=== PATIENT | female | born 1955 | race Caucasian/White ===

== ENCOUNTER 2019-07-15 22:07 | Observation (INO) | payer MEDICARE, BC, SELFPAY ==
[2019-07-15] VITALS (10 sets, daily range): BP systolic 99–101; BP diastolic 64–69; PULSE 69–82; RESP 17–29; TEMP 36.9; O2SAT 91–98
--- NOTE | ~2019-07-15 | CT_ITS ---
EXAMINATION: CT brain wo con INDICATION: Confusion and left facial droop COMPARISON: None TECHNIQUE: Standard unenhanced head CT. The dose-length product (DLP) was 605.33 mGy-cm. The mA was a djusted according to patient size. Iterative reconstruction technique was employed. FINDINGS: There is no intracranial hemorrhage, acute infarction, or abnormal mass lesion. The ventric les are normal. There is no abnormal mass effect or midline shift. The oleary-white matter differentiat ion is normal. The basal cisterns are patent. The orbits are normal. The paranasal sinuses, mastoids and calvarium are normal. IMPRESSION: 1. No acute intracranial abnormality. As per stroke protocol, I called these results to the Emergency Department, and discussed with Dr. Kayden Goins MD at 2229 hours on 07/15/2019. Reviewed, dictated and finalized at location A. IMPRESSION: 1. No acute intracranial abnormality. As per stroke protocol, I called these results to the Emergency Department, and discussed with Dr. Fransisca Goins MD at 2229 hours on 07/15/2019.
--- NOTE | ~2019-07-15 | XR_ITS ---
EXAMINATION: XR chest 1V portable INDICATION: Transient alteration of awareness TECHNIQUE: Portable AP chest at 2231 hours COMPARISON: 07/16/2012 FINDINGS: There are minimal airspace opacities of the left lung base. The lungs are otherwise free of acute opacities. There is no pleural effusion or pneumothorax. The cardiomediastinal silhouette is n ormal for technique. Cholecystectomy clips are present in the right upper quadrant. IMPRESSION: 1. Minimal airspace opacities of the left lung base, consistent with atelectasis versus pneumonia. Reviewed, dictated and finalized at location A. IMPRESSION: 1. Minimal airspace opacities of the left lung base, consistent with atelectasi s versus pneumonia.
[2019-07-15 22:14] LABS: Glucose Point of Care 162 (65-105)
--- NOTE | 2019-07-15 22:15 | ECG_ITS ---
Measurements Intervals Waterproof Rate: 77 P: 96 OH: 178 QRS: 19 QRSD: 83 T: 54 QT: 340 QTc: 385 Interpretive Statements SINUS RHYTHM DELAYED PRECORDIAL R/S TRANSITION LOW QRS VOLTAGE IN LIMB LEADS BORDERLINE ST-T WAVE ABNORMALITY- LATERAL LEADS BASELINE WANDER- I, III BORDERLINE ECG Electronically Signed On 07-16-2019 8:34:45 CDT by Johan Bush D.O.
--- NOTE | 2019-07-15 22:21 | ED.NEUROSD ---
HPI - Neuro Symptoms/Deficit General Chief Complaint: Suspected CVA Stated Complaint: syncopal episodes, SOB, confusion Time Seen by Provider: 07/15/19 22:10 Source: patient, family (pt's ) and RN notes reviewed Mode of arrival: ambulatory Limitations: no limitations History of Present Illness HPI Narrative: Pt is a 64 y/o female with a Hx of A-Fib, who presents to the ED with c/o intermittent episodes of lightheadedness starting this evening. According to the pt's , she was admitted at [facility] yesterday for a Non-STEMI. He notes that she was discharged home from [place] around 12:00 PM today. Pt's states that she has had roughly 3-4 episodes of near syncope since 18:00 this evening. He notes that she became lightheaded and weak during the episodes, and states that Dxed with NSTEMI at [place] Came home from [place] today (released at noon) Had more frequent episodes of lightheadedness, started growling during episodes Episodes started around 6 PM (worsened since then) Had total of 3-4 episodes (lasts for several minutes) No LOC [facility] came to house and had low O2 (placed on O2 and felt better) around 9:30-9:45 PM EMS advised the pt to go to ED, but she didn?t want to per pt no pain, SOB, dizziness, nausea, numbness/tingling generalized weakness pt is unsure why she is here Currently on Eliquis for A-Fib, baby ASA Onset (ago): hour(s) (4) Time: 18:00 Timing confirmed by: spouse Related Data Home Medications Medication Instructions Recorded Confirmed amiodarone 200 mg tablet 200 mg PO BID tablet 03/22/19 apixaban 5 mg tablet 5 mg PO ONCE tablet 03/22/19 cyanocobalamin (vitamin B-12) 500 500 mcg PO DAILY 03/22/19 mcg tablet hydrochlorothiazide 25 mg tablet 25 mg PO DAILY 03/22/19 metoprolol tartrate 25 mg tablet 12.5 mg PO BID tablet 03/22/19 potassium chloride 10 mEq 10 meq PO DAILY 03/22/19 tablet,extended release Allergies Allergy/AdvReac Type Severity Reaction Status Date / Time escitalopram Allergy Unknown - headaches Verified 05/01/17 21:20 No Known Allergies Allergy Unverified 12/08/18:00 [facility] Past Medical History Medical History (Updated 03/22/19 @ 09:40 by Eleanor Hunt LPN) Abnormal mammogram (~07/20/12) Atrial fibrillation History of cardioversion (~09/07/17) Neoplasm of adipose tissue Normal ECG (~07/17/12) Surgical History Surgical History (Updated 03/22/19 @ 09:49 by Eleanor Hunt LPN) History of cardiac cath (~12/08/18) Hx of laparoscopic gastric banding (~2009) Family History Family History (Updated 02/09/18 @ 12:29 by DOCTOR UNKNOWN) Father Patient's father is Other Hypertension No family history of cardiovascular disease No family history of diabetes mellitus No family history of malignant neoplasm Social History Social History Smoking status: Never smoker Alcohol intake: never Course Vital Signs Vital signs: Vital Signs Temperature 36.9 C 07/15/19 22:21 Pulse Rate 77 07/15/19 22:21 Respiratory Rate 20 07/15/19 22:21 Blood Pressure 100/64 07/15/19 22:21 Pulse Oximetry 98 07/15/19 22:21 Temperature 36.9 C 07/15/19 22:33 Pulse Rate 73 07/15/19 22:33 Respiratory Rate 22 H 07/15/19 22:33 Blood Pressure 100/68 07/15/19 22:33 Pulse Oximetry 95 07/15/19 22:33 MDM - Neuro Symptoms/Deficit Lab Data Result diagrams: 07/15/19 22:29 07/15/19 22:29 Labs: Lab Results 07/15/19 07/15/19 07/15/19 Range/Units 22:10 22:29 22:29 WBC Pending RBC Pending Hgb Pending Hct Pending MCV Pending MCH Pending MCHC Pending RDW Pending Plt Count Pending MPV Pending Immature Gran % (Auto) Pending Neut % (Auto) Pending Lymph % (Auto) Pending Marshall % (Auto) Pending Eos % (Auto) Pending Baso % (Auto) Pending Lymph # (Auto) Pending
[2019-07-15 22:38] LABS: Hematocrit 37.4 % (37.0-47.0); Hemoglobin 12.3 g/dL (12.0-15.0); Mean Corpuscular HGB Conc 32.9 g/dl (32-36); Mean Corpuscular Hemoglobin 31.1 pg (26-34); Mean Corpuscular Volume 94.7 fl (80-100); Mean Platelet Volume 12.2 fl (7.4-10.4); Platelet Count Result 198 k/mm3 (150-375); Red Blood Count 3.95 M/mm3 (4.2-5.4); Red Cell Distribution Width 14.3 % (11.5-14.5); White Blood Count 12.8 K/mm3 (4.5-10.0)
[2019-07-15 22:45] LABS: INR 1.8; Prothrombin Time 20.6 Seconds (11.1-14.7)
[2019-07-15 22:46] LABS: Partial Thromboplastin Time 35.2 SECONDS (22.3-36.8)
[2019-07-15 22:47] LABS: Blood Urea Nitrogen 12 mg/dL (7-17); Calcium 7.7 mg/dL (8.4-10.2); Carbon Dioxide 28 mmol/L (22-30); Chloride 104 mmol/L (98-107); Estimated CRCL calculation 54 ml/min; Estimated Glomerular Filt Rate > 60; Ethanol < 10 mg/dL (<10); Glucose 165 mg/dL (65-105); Magnesium 2.1 mg/dL (1.6-2.3); Potassium 3.7 mmol/L (3.4-5.0); Sodium 132 mmol/L (137-145)
[2019-07-15 22:52] LABS: Band Neutrophils Percent 4 % (0-6); Lymphocytes Absolute Manual 0.25 K/mm3 (1.1-4.5); Monocytes Absolute Manual 0.51 K/mm3 (0.1-0.90); Monocytes Percent Manual 4 % (3-9); Neutrophils Absolute Manual 12.03 K/mm3 (1.7-7.2); Neutrophils Percent Manual 90 % (46-73); Total Cells Counted 100
[2019-07-15 22:53] LABS: Platelet Estimate Adequate (Adequate)
--- NOTE | 2019-07-15 22:55 | ED.SYNCOPE ---
HPI - Syncope General Chief Complaint: Suspected CVA Stated Complaint: syncopal episodes, SOB, confusion Time Seen by Provider: 07/15/19 22:10 Source: patient, family (pt's ) and RN notes reviewed Mode of arrival: ambulatory Limitations: no limitations History of Present Illness HPI narrative: Pt is a 64 y/o female with a Hx of A-Fib, who presents to the ED with c/o intermittent episodes of lightheadedness starting this evening. According to the pt's , she was evaluated in the ED at [facility] yesterday after she was found to be diaphoretic and bradycardic during her ECT appointment. He notes that the pt had had several episodes of near syncope prior to her visit to [place] ED. According to their records, she was found to have a low potassium and an episode of nonsustained V-tach while in the ED. Pt was subsequently admitted to the hospital, where she had her Amiodarone and Metoprolol stopped. Pt's notes that she was discharged home from [place] around 12:00 PM today. Pt's states that she has had roughly 3-4 episodes of near syncope since 18:00 this evening. He notes that she becomes lightheaded and begins growling during the episodes, and states that the episodes only lasted for several minutes at a time. Pt's notes that [facility] came to their house around 21:30 to evaluate the pt, and states that her O2 saturation was low. He notes that the pt began feeling better after being placed on O2, and states that the pt didn't want to be transported to the ED at that time. Pt currently reports generalized weakness, but denies any LOC, ABD pain, CP, SOB, nausea, vomiting, or numbness/tingling. She is currently taking Eliquis and ASA 81 mg. complaint: almost passed out Onset (ago): hour(s) (4) Description of event: other (lightheadedness; growling ) Witnessed: Yes - by Other (pt's ) Injuries sustained associated with event: none Current symptoms: weakness (generalized weakness) History: previous syncopal episode Treatments prior to arrival: none Related Data Home Medications Medication Instructions Recorded Confirmed apixaban 5 mg tablet 5 mg PO BID tablet 03/22/19 07/16/19 cyanocobalamin (vitamin B-12) 500 500 mcg PO DAILY 03/22/19 07/16/19 mcg tablet aspirin 81 mg PO DAILY 07/16/19 07/16/19 atorvastatin 40 mg PO DAILY 07/16/19 07/16/19 calcium carbonate 430 mg PO BID 07/16/19 07/16/19 cholecalciferol (vitamin D3) 1,000 unit PO DAILY 07/16/19 07/16/19 mirtazapine 22.5 mg PO HS 07/16/19 07/16/19 mv. min [id number] [AquADEKs] 1 tablet PO DAILY 07/16/19 07/16/19 potassium chloride 20 meq PO DAILY 07/16/19 07/16/19 trimethobenzamide 300 mg PO TID 07/16/19 07/16/19 Allergies Allergy/AdvReac Type Severity Reaction Status Date / Time No Known Allergies Allergy Verified 07/16/19 01:27 Review of Systems Review of Systems: All systems reviewed & are unremarkable except as noted in HPI and below Constitutional: Constitutional: Reports weakness (generalized) Cardiovascular: Cardiovascular: Denies chest pain Respiratory: Respiratory: Denies dyspnea Gastrointestinal: Gastrointestinal: Denies abdominal pain, Denies nausea and Denies vomiting Neurologic: Denies numbness, Denies tingling and Reports other (Reports: lightheadedness. Denies: LOC) [facility] Past Medical History Medical History (Updated 07/16/19 @ 04:41 by Fransisca Goins MD) Abnormal mammogram (~07/20/12) Anxiety Arthritis Atrial fibrillation Depression History of cardioversion (~09/07/17) HTN (hypertension) Hypokalemia Neoplasm of adipose tissue Normal ECG (~07/17/12) Skin cancer Surgical History Surgical History History of cardiac cath (~12/08/18) Hx of appendectomy Hx of cholecystectomy Hx of laparoscopic gastric banding (~2009) Hx of tonsillectomy Hx of tubal ligation Social History Social History Sm
[2019-07-15 23:00] LABS: Troponin I 0.106 ng/mL (0.000-0.034)
[2019-07-15 23:30] LABS: Alveolar/Arterial O2 Gradient 73.9 mmHg; Base Excess ABG 1.5 mEq/l (+/-2.0); Carboxyhemoglobin 0.8 % THb (0-2.0); Fractional Inspired Oxygen 21 %; Methemoglobin ABG 0.2 %THb (0-1.5); Oxygen Content ABG 12.9 %vol (16.0-22.0); Oxyhemoglobin 72.2 % THb (90.0-100.0); PCO2 ABG 31.4 mmHg (35.0-45.0); PO2 FiO2 Ratio Arterial Blood 1.82 %; Reduced Hemoglobin 26.8 %THb (0-5.0); Total Hemoglobin 12.7 g/dL (12.0-18.0); pH ABG 7.501 (7.350-7.450)
[2019-07-15 23:36] LABS: Device ROOM AIR; Modified Allen's Test Pass; Oxygen Saturation ABG 78.3 % (95.0-100.0); PO2 ABG 38.2 mmHg (80.0-100.0); Site Drawn LEFT RADIAL
[2019-07-15 23:44] LABS: Alanine Aminotransferase 48 U/L (4-35); Albumin Level 2.6 g/dL (3.5-5.1); Alkaline Phosphatase 199 U/L (38-126); Aspartate Amino Transferase 65 U/L (14-36)
[2019-07-15 23:53] LABS: NT Pro B Type Natriuretic Pept 17700 PG/ML (5-100)
[2019-07-16] VITALS (13 sets, daily range): BP systolic 93–107; BP diastolic 53–64; PULSE 59–69; RESP 15–23; TEMP 36.2–36.9; O2SAT 91–96; BMI 27.6
[2019-07-16 00:16] LABS: Add Urine Microscopic? YES; Amorphous Sediment Urine Few; Appearance Urine Turbid (Clear); Bacteria Urine 1+ /hpf; Bilirubin Urine Negative (Negative); Blood Urine 3+ (Negative); Color Urine Yellow (Yellow); Glucose Urine UA Negative (Negative); Ketones Urine Negative (Negative); Leukocyte Esterase Ur 1+ LEU/UL (Negative); Mucus Urine Heavy /lpf; Nitrate Urine Positive (Negative); Protein Urine 2+ mg/dL (Negative); RBC Urine >75 /hpf (0-2); Specific Grav Ur 1.016 (1.001-1.035); Squamous Epithelial Cell Urine Few /hpf (Few); Urobilinogen Urine Negative mg/dL (<2.0); WBC Urine >75 /hpf
[2019-07-16 00:37] LABS: Amphetamine Screen Urine Negative (Negative); Barbiturate Screen Urine Negative (Negative); Benzodiazepines Screen Urine Negative (Negative); Cannabinoid Screen Urine Negative (Negative); Cocaine Screen Urine Negative (Negative); Methadone Screen Urine Negative (Negative); Opiate Screen Urine Negative (Negative); Phencyclidine Screen Urine Negative (Negative)
--- NOTE | 2019-07-16 02:20 | ADMGEN ---
This patient, Conchita Hampton, was admitted to IMU Room 203-01. Patient/family oriented to hospital policies and general routines including ID bracelet, bed and alarms, visiting hours, pain management, procedures, bathroom and other care routines, personal items, smoking policy, room service/diet, and visiting hours. Valuables list has been completed. Information on how to activate the Rapid Response Team has been discussed. Patient/Family are encouraged to report perceived risks to care and to ask questions if they do not understand what they are told or what they should do.
[2019-07-16 02:37] LABS: Troponin I 0.139 ng/mL (0.000-0.034)
[2019-07-16 06:41] LABS: Troponin I 0.114 ng/mL (0.000-0.034)
--- NOTE | 2019-07-16 06:55 | PM.IMHP ---
H&P: HPI History of Present Illness Chief complaint: Passed out Narrative: Conchita Hampton is a 64 year old female with a past medical history of refractory depression, paroxysmal atrial fibrillation, and recent hospitalization for electrolyte abnormalities who presented to the ER from home via EMS due to episodes of confusion and passing out. Source of information is outside past medical records, ER record and patient report. On the patient had been at [facility] for her ECT treatment. She had been found to be diaphoretic and bradycardic during her ECT treatment. She had evidently had several near syncopal episodes prior to be taken to the ER. In the ER patient was found to have hypokalemia hypo magnesium E a and an episode of nonsustained V-tach. Her EKG demonstrated QT prolongation as well. The patient was admitted to the hospital overnight where she received potassium and magnesium supplementation and her amiodarone and metoprolol were held. On Thursday morning her electrolytes and QT interval had normalized. The patient was discharged around noon. Since returning home the patient had between 3 or 4 episodes of near-syncope starting around 6:00 p.m.. The patient became lightheaded and develops face/lip numbness and would make a growling sound during the episodes. The episodes lasted several minutes. The patient's called EMS and when they arrived to patient's house around 930 the patient had low oxygen saturations. Her oxygen saturations normalized with a few deep breaths. The patient denies having any falls but has multiple areas of ecchymosis. She reports that most the time she feels lightheadedness and sits down prior to passing out. She denies any excessive anxiety a could be triggering these episodes. She denies any chest pain or shortness of breath. She has not been having any cough or congestion. She reports that she had been having diarrhea last week but has had couple of days of normally formed stools. Her last bowel movement was yesterday. She denies any increased urinary frequency or urgency but does note that her urine has been more foul-smelling. She has been drinking more liquids and despite drinking liquids her urine remains dark. She reports some improvement in her depression symptoms since starting ECT treatment. She has had fiber 6 ECT treatments. She denies any short-term memory loss from her treatments. Review of Systems Review of Systems: Narrative: Except as documented in the HPI, all other systems were reviewed and are negative. [facility] Past Medical History Medical History (Updated 07/19/19 @ 11:01 by Bisi Dumont MD) Abnormal mammogram (~07/20/12) Anxiety Arthritis Depression Receiving ECT treatments History of cardioversion (~09/07/17) HTN (hypertension) Neoplasm of adipose tissue Normal ECG (~07/17/12) Paroxysmal atrial fibrillation In 2019 Skin cancer Surgical History Surgical History (Updated 07/16/19 @ 07:50 by Elizabeth Mo DO) Gastric bypass status for obesity December 2018 after failure of gastric band. History of cardiac cath (~12/08/18) Without stent placement Hx of appendectomy Hx of cholecystectomy Hx of laparoscopic gastric banding (~2009) With subsequent band reversal and gastric bypass December 2018 Hx of tonsillectomy Hx of tubal ligation Social History Social History Smoking status: Never smoker Second hand tobacco smoke exposure: Yes ( SMOKES) Alcohol intake: never Substance use: never Substance use type: does not use Gender identity (if verbalized by the patient): Female Spiritual care concerns: No Agree to blood products: Yes Meds Home Medications and Allergies Home Medications Medication Instructions Recorded Confirmed Type apixaban 5 mg tablet 5 mg PO BID tablet 03/22/19 07/19/19 History cyanocobalamin (vitamin B-12) 500 500 mcg PO DAILY 03/22/19
--- NOTE | 2019-07-16 09:58 | PM.IMPN ---
Progress Note: A&P Assessment and Plan (1) Syncope: Qualifiers: Syncope type: unspecified Qualified Code(s): R55 - Syncope and collapse Code(s): R55 - Syncope and collapse Status: Acute Assessment and Plan: CT brain negative. Patient with noted nonsustained ventricular tachycardia at [facility] ER and noted on telemetry today. Will continue to monitor. Cardiology consulted and appreciate input. (2) Nonsustained ventricular tachycardia: Code(s): I47.2 - Ventricular tachycardia Status: Acute Assessment and Plan: Telemetry on 07/16/2019 with short run of nonsustained ventricular tachycardia. Patient asymptomatic. Had amiodarone discontinued when at [facility]. QT interval 385 on EKG here. Will also hold mirtazapine and trimethobenzamide as may cause QT prolongation. Continue to monitor. Await further recommendations from Cardiology. (3) Elevated troponin: Code(s): R79.89 - Other specified abnormal findings of blood chemistry Status: Acute Assessment and Plan: Per ER physician report, troponin levels here are higher than when at [facility]. EKG with no acute changes. Troponin level appears to have peaked at 0.139 with most recent level of 0.114. Cardiology to evaluate as noted. (4) Acute UTI: Code(s): N39.0 - Urinary tract infection, site not specified Status: Acute Assessment and Plan: UA suspicious on admission. Urine culture is pending. On IV ceftriaxone while awaiting culture results. (5) Paroxysmal atrial fibrillation: Code(s): I48.0 - Paroxysmal atrial fibrillation Status: Acute Assessment and Plan: Known history of paroxysmal atrial fibrillation for which she was previously on amiodarone and metoprolol both of which were stopped at [facility] a few days ago. Has still been taking Eliquis at home. At this point will continue unless otherwise directed by Cardiology. (6) HTN (hypertension): Qualifiers: Hypertension type: essential hypertension Qualified Code(s): I10 - Essential (primary) hypertension Code(s): I10 - Essential (primary) hypertension Status: Acute Assessment and Plan: Blood pressure reviewed on 07/16/2019 and low normal. Not on antihypertensives at this time. Will monitor. (7) Depression: Qualifiers: Depression Type: unspecified Qualified Code(s): F32.9 - Major depressive disorder, single episode, unspecified Code(s): F32.9 - Major depressive disorder, single episode, unspecified Status: Acute Assessment and Plan: Receives ECT at [facility]. Also on mirtazapine but will hold with recent QT prolongation issues. Will monitor. Will need to follow-up with her psychiatrist as an outpatient. (8) DVT prophylaxis: Code(s): Z29.9 - Encounter for prophylactic measures, unspecified Status: Acute Assessment and Plan: Home Eliquis. Time Spent With Patient Time with patient: 15 - 25 minutes Subjective Date/time seen: 07/16/19 09:58 Interval history: Date of Service: 07/16/2019. Admitted with syncope, elevated troponin, suspected UTI. Hospitalized at [facility] from 07/14/2019-07/15/2019 for near syncope with low potassium and nonsustained ventricular tachycardia with prolonged QT. Patient feeling much better this morning and wants to go home. Denies chest pain or palpitations. No shortness of breath. No abdominal pain. No dysuria or hematuria. Noted to have episodes of nonsustained V-tach on telemetry this morning. Review of Systems Review of Systems: Narrative: Feeling better. Constitutional: Constitutional: Denies chills and Denies fever(s) ENT: Denies nasal congestion and Denies nasal discharge Cardiovascular: Cardiovascular: Denies chest pain and Denies palpitations Respiratory: Respiratory: Denies dyspnea Gastrointestinal: Gastrointestinal: Denies abdominal pain, Denies nausea and Denies vomiting Lisa
--- NOTE | 2019-07-16 10:38 | PM.CNCAR ---
Assessment and Plan Additional Plan 64-year-old white female with history of paroxysmal atrial fib which has been quiescent on amiodarone therapy since cardioversion 2 years ago and has not recurred. She also has lost a considerable amount of weight following Teri-en-Y gastric bypass 6 months ago. She now has episodes of nonsustained VT possibly resulting in brief syncopal episodes. These are occurring in the setting of known normal LV function and known lack of significant coronary artery disease. Her QT interval was rather long at [facility] is slightly lengthened on some telemetry leads here at [facility]. These arrhythmias are being attributed to her amiodarone since she is no longer hypokalemic and she still had an episode of nonsustained VT this morning. This is a somewhat interesting and a bit challenging electrophysiology problem with this current situation. Strictly speaking these have ventricular arrhythmia is are not placing her at high risk for sudden since we know she has normal LV function and does not have any coronary disease. If these are being attributed to her antiarrhythmic agent then they probably can be observed as an outpatient and as amiodarone washes out hopefully this will stop occurring. With the half-life of amiodarone being 1-3 months these episodes may be occurring for a while before they subside. The there is the concept of placing her on some additional antiarrhythmic therapy such as mexiletine to try to suppress this while amiodarone washes out. For this reason I had a conversation/consultation with the electrophysiology service at [facility] on the telephone. It is my opinion and there is as well that we probably should avoid that and simply place her back on her low-dose of metoprolol and allow her to be discharged home. She will follow with my partner, Dr. Correa in the office I will see that we have appropriate follow-up scheduled after discharge. Bryson Maier MD [facility] History of Present Illness History of Present Illness Consult date/time: Date of service: 07/16/19 10:38 Reason For Visit: Confusion and passing out Narrative: This is a 64-year-old patient who is well-known to Dr. Correa of our practice who has a history of paroxysmal atrial fibrillation. She was admitted last night after being seen in the emergency room after syncopal episode and on telemetry she is being seen to have a spontaneous episodes of self-limited nonsustained ventricular tachycardia. The patient was seen in her extensive chart both here and at [facility] were reviewed this morning. The patient feels well now and is hoping to be discharged home. She has a history of atrial fibrillation dating back to 2016 or 2017. At that time she was being seen in consultation because of palpitations she had no other significant cardiac pathology in the history but she was morbidly obese at that time. The patient was eventually found to have paroxysmal atrial fibrillation. She was treated with amiodarone medically and then cardioverted to sinus rhythm in August of 2017. I do not believe she has had any evidence of recurrence of atrial fib since that cardioversion. She has been followed in the office in the intervening years and has had some occasional episodes of lightheadedness, presyncopal type symptoms and has had echocardiograms done which consistently demonstrate normal appearing left ventricular function. Because of this she was evaluated with a stress with the stress test that was mildly abnormal this led to a left heart catheterization in November of 2018 which did not demonstrate any significant coronary disease. She did have about 70% stenosis way at the distal end of the LAD done at the apex where the vessel was very small and not really appropriate for interventional treatment. Her left ventriculogram at the time of that study was also normal. With regard to her morbid obesity she had a Teri-en-Y gastric bypass operation at [facility] in December o
[2019-07-16] MEDS: CALCIUM CARBONATE (OSCAL) 500 MG TABLET PO (11:38)
[2019-07-16] MEDS: ASPIRIN 81 MG ENTERIC TABLET PO (11:38)
[2019-07-16] MEDS: APIXABAN 5 MG TABLET PO (11:38)
[2019-07-16] MEDS: POTASSIUM CHLORIDE 20 MEQ PACKET (FOR LIQUID) PO (11:39)
[2019-07-16] MEDS: CYANOCOBALAMIN 500 MCG TABLET PO (11:39)
[2019-07-16] MEDS: ATORVASTATIN 40 MG TABLET PO (11:39)
[2019-07-16] MEDS: CHOLECALCIFEROL 1,000 UNIT TABLET 1000 UNITS PO (11:39)
[2019-07-16] MEDS: METOPROLOL TARTRATE 12.5 MG TABLET PO (11:39)
--- NOTE | 2019-07-16 16:31 | PM.DS ---
DS: Diagnosis Admitting Diagnosis Admitting Diagnosis: Syncope and collapse Discharge Diagnosis (1) Syncope: Qualifiers: Syncope type: unspecified Qualified Code(s): R55 - Syncope and collapse Code(s): R55 - Syncope and collapse Status: Acute (2) Nonsustained ventricular tachycardia: Code(s): I47.2 - Ventricular tachycardia Status: Acute (3) Elevated troponin: Code(s): R79.89 - Other specified abnormal findings of blood chemistry Status: Acute (4) Acute UTI: Code(s): N39.0 - Urinary tract infection, site not specified Status: Acute (5) Paroxysmal atrial fibrillation: Code(s): I48.0 - Paroxysmal atrial fibrillation Status: Acute (6) HTN (hypertension): Qualifiers: Hypertension type: essential hypertension Qualified Code(s): I10 - Essential (primary) hypertension Code(s): I10 - Essential (primary) hypertension Status: Acute (7) Depression: Qualifiers: Depression Type: unspecified Qualified Code(s): F32.9 - Major depressive disorder, single episode, unspecified Code(s): F32.9 - Major depressive disorder, single episode, unspecified Status: Acute DS: Summary Hospital Course Reason for hospitalization: Confusion and passing out. Hospital Course: Date of Service of Discharge: July 16, 2019. History of Present Illness: Patient is a 64-year-old woman with refractory depression receiving ECT, paroxysmal atrial fibrillation and hypertension who presented to the emergency room from home via EMS due to episode of confusion and passing out. Patient apparently had been at [facility] on June, for her ECT treatment. She subsequently was found to be diaphoretic and bradycardic and during her ECT treatment. She apparently had several near syncopal episodes prior to being taken to the ER. In the emergency room, she was found to have hypokalemia, hypomagnesemia and an episode of nonsustained ventricular tachycardia. EKG apparently demonstrated QT prolongation as well. She was then observed overnight at [facility] where she received potassium and magnesium supplementation. He amiodarone and metoprolol were held. By the morning of 07/15/2019, electrolytes and QT interval had normalized. She was discharged around noon on that day. After returning home she had 3-4 episodes of near-syncope starting around 6:00 p.m.. She became lightheaded, developed face/ lip numbness and would make a growling sound during the episodes. The episodes lasted several minutes. Her called EMS. When EMS arrived at 9:30 p.m. the patient had low oxygen saturations. Patient's oxygen saturations normalized with a few deep breaths. No excessive anxiety. No chest pain. In the emergency room here, she was noted to have elevated troponin levels per ER record to be higher than values at [facility]. Also concern for urinary tract infection based on urinalysis. As result, she was placed in observation for further evaluation and treatment. Course in Hospital: Patient was placed in the IMU where she remained for the duration of her stay. Cardiology was consulted given her circumstances with patient seen by Dr. Maier. On telemetry, patient was noted to have a few short runs of nonsustained ventricular tachycardia which were asymptomatic. Cardiology did feel a rhythm is were result of amiodarone which was already discontinued. Dr. Maier did speak with personnel arbitrator at [place] with both concurring best option for patient was to avoid any other anti arrhythmic therapy while awaiting amiodarone washout and placing patient back on low-dose metoprolol. She was restarted on metoprolol tartrate 12.5 mg every 12 hours with her previous history of gastric bypass. Patient was felt stable to discharge given the half life of amiodarone being 1-3 months during which time episodes may occur before they subside. Ca
== END 2019-07-16 12:53 | disposition home or self-care (01) ==
LOC: ANHED 22:22 → ANHIMU 07-16 02:02
PROVIDERS: Admitting Provider Internal Medicine; Emergency Provider General Practice; PCP Family Medicine; Visit Provider Hospitalist
DX: R55 Syncope and collapse (principal); N39.0 Urinary tract infection, site not specified; I47.2 Ventricular tachycardia; I48.0 Paroxysmal atrial fibrillation; I10 Essential (primary) hypertension; F32.9 Major depressive disorder, single episode, unspecified; R79.89 Other specified abnormal findings of blood chemistry; Z98.84 Bariatric surgery status; Z79.82 Long term (current) use of aspirin; Z85.828 Personal history of other malignant neoplasm of skin; Z79.01 Long term (current) use of anticoagulants
CPT/HCPCS: 36415; 36600; 70450; 71045; 80048; 80076; 80307; 81001; 82375; 82805; 82948; 83050; 83735; 83880; 84484; 85025; 85610; 85730; 87086; 87088; 93005; 96374; 99285; A9270; G0378; J0696

== ENCOUNTER 2019-07-19 11:25 | Outpatient (CLI) | payer MEDICARE, BC, SELFPAY ==
[2019-07-19 11:54] LABS: Alanine Aminotransferase 37 U/L (4-35); Albumin Level 2.8 g/dL (3.5-5.1); Alkaline Phosphatase 170 U/L (38-126); Aspartate Amino Transferase 47 U/L (14-36); Bilirubin,Total 0.6 mg/dL (0.2-1.3); Blood Urea Nitrogen 7 mg/dL (7-17); Calcium 8.1 mg/dL (8.4-10.2); Carbon Dioxide 30 mmol/L (22-30); Chloride 109 mmol/L (98-107); Estimated Glomerular Filt Rate 55; Glucose 85 mg/dL (65-105); Potassium 3.5 mmol/L (3.4-5.0); Sodium 138 mmol/L (137-145)
== END 2019-07-19 11:26 | disposition home or self-care (01) ==
PROVIDERS: PCP Family Medicine; Visit Provider Family Medicine
DX: E87.6 Hypokalemia (principal)
CPT/HCPCS: 36415; 80053

== ENCOUNTER 2019-08-12 09:56 | Outpatient (CLI) | payer MEDICARE, BC, SELFPAY ==
[2019-08-12 11:06] LABS: Blood Urea Nitrogen 10 mg/dL (7-17); Calcium 8.1 mg/dL (8.4-10.2); Carbon Dioxide 27 mmol/L (22-30); Chloride 106 mmol/L (98-107); Estimated Glomerular Filt Rate > 60; Glucose 83 mg/dL (65-105); Potassium 3.9 mmol/L (3.4-5.0); Sodium 135 mmol/L (137-145)
== END 2019-08-12 09:57 | disposition home or self-care (01) ==
LOC: ANHLAB 10:04
PROVIDERS: PCP Family Medicine; Visit Provider Internal Medicine Cardiovascular Disease
DX: R55 Syncope and collapse (principal); E87.6 Hypokalemia; Z79.01 Long term (current) use of anticoagulants; E43 Unspecified severe protein-calorie malnutrition; R94.31 Abnormal electrocardiogram [ECG] [EKG]
CPT/HCPCS: 36415; 80048

== ENCOUNTER 2019-12-14 09:21 | Outpatient (CLI) | payer MEDICARE, BC, SELFPAY ==
[2019-12-14 09:52] LABS: Anion Gap 5 mmol/L (8-16); Blood Urea Nitrogen 11 mg/dL (7-17); Calcium 8.5 mg/dL (8.4-10.2); Carbon Dioxide 29 mmol/L (22-30); Chloride 103 mmol/L (98-107); Estimated Glomerular Filt Rate 55; Glucose 97 mg/dL (65-105); Sodium 137 mmol/L (137-145)
== END 2019-12-14 09:22 | disposition home or self-care (01) ==
LOC: ANHLAB 09:24
PROVIDERS: PCP Family Medicine; Visit Provider Physician Assistant
DX: E87.6 Hypokalemia (principal); Z79.899 Other long term (current) drug therapy
CPT/HCPCS: 36415; 80048

== ENCOUNTER 2020-01-30 11:00 | Emergency (ER) | payer MEDICARE, BC, SELFPAY ==
--- NOTE | ~2020-01-30 | XR_ITS ---
XR wrist RT min 3V DATE: 01/30/2020 12:16 INDICATION: Fall yesterday. Medial wrist pain. TECHNIQUE: 4 views COMPARISON: None FINDINGS: There is a transverse nondisplaced fracture of the ulnar styloid process. There is prominent osteoarthritic change at the first carpal metacarpal carpal joint including joint space narrowing and prominent spurring. There is diffuse osteopenia. IMPRESSION: Nondisplaced ulnar styloid process fracture Reviewed, dictated and finalized at location A.
--- NOTE | 2020-01-30 12:07 | ED.UPPEXIN ---
HPI - Extremity Injury (Upper) General Chief Complaint: Extremity Injury, Upper Stated Complaint: hurt right wrist Time Seen by Provider: 01/30/20 12:07 Source: patient Mode of arrival: ambulatory Limitations: no limitations History of Present Illness HPI narrative: 64-year-old woman comes in today complaining of right wrist pain and swelling that started yesterday after she fell. Patient states that [place] when she lost her balance and fell backwards on her outstretched hands, Injuring her right. She denies any other injury. She denies any proceeding lightheadedness, chest pain or palpitations. Patient states that she has atrial fibrillation for which she takes a blood thinner (apixaban) and states that sometimes her heart rate is elevated. She does not have any lightheadedness, chest pain, shortness of breath, and usually with some rest the tachycardia subsides. complaint: injury to: right and wrist Onset (ago): day(s) (1) Other Extremity Injury: Right: wrist Other injuries: none Handedness: right Place: outdoors Severity: moderate Relieving factors: rest Exacerbating factors: movement of extremity Context: fall Associated symptoms: denies other symptoms Treatments prior to arrival: other ( Tylenol) Related Data Home Medications Medication Instructions Recorded Confirmed apixaban 5 mg tablet 5 mg PO BID tablet 03/22/19 01/30/20 cyanocobalamin (vitamin B-12) 500 500 mcg PO DAILY 03/22/19 01/30/20 mcg tablet AquADEKs 1 tablet PO DAILY 07/16/19 01/30/20 calcium carbonate 430 mg PO BID 07/16/19 01/30/20 cholecalciferol (vitamin D3) 1,000 unit PO DAILY 07/16/19 01/30/20 Allergies Allergy/AdvReac Type Severity Reaction Status Date / Time No Known Allergies Allergy Verified 12/19/19 09:49 Review of Systems Constitutional: Constitutional: Denies chills and Denies fever(s) ENT: Denies dysphagia, Denies nasal congestion and Denies sore throat Cardiovascular: Cardiovascular: Denies chest pain and Denies radiating jaw, neck or arm pain Respiratory: Respiratory: Denies cough, Denies dyspnea and Denies wheezing Gastrointestinal: Gastrointestinal: Denies nausea and Denies vomiting Integumentary/Breasts: Skin/Breast: Denies pruritus, Denies erythema and Denies rash Neurologic: Denies vertigo, Denies dizziness, Denies syncope, Denies focal weakness and Denies numbness Hematologic/Lymphatic: Hematologic/Lymphatic: Reports easy bleeding and Reports easy bruising Allergic/Immunologic: Allergic/Immunologic: Denies lip swelling and Denies tongue swelling PMFSH Past Medical History Medical History Abnormal mammogram (~07/20/12) Anxiety Arthritis Depression Receiving ECT treatments History of cardioversion (~09/07/17) Neoplasm of adipose tissue Normal ECG (~07/17/12) Paroxysmal atrial fibrillation In 2019 Skin cancer Surgical History Surgical History Gastric bypass status for obesity December 2018 after failure of gastric band. History of cardiac cath (~12/08/18) Without stent placement Hx of appendectomy Hx of cholecystectomy Hx of laparoscopic gastric banding (~2009) With subsequent band reversal and gastric bypass December 2018 Hx of tonsillectomy Hx of tubal ligation Social History Social History Smoking status: Never smoker Second hand tobacco smoke exposure: Yes ( SMOKES) Alcohol intake: never Substance use: never Substance use type: does not use Gender identity (if verbalized by the patient): Female Spiritual care concerns: No Agree to blood products: Yes Exam Const: General: healthy appearing, no acute distress and alert Orientation/consciousness: patient oriented x3 Limitations: no limitations Resp: Effort & Inspection: normal respiratory effort, not labored and no r
[2020-01-30 12:10] VITALS: BP 165/116; PULSE 112; RESP 16; TEMP 36.8; O2SAT 97
--- NOTE | 2020-01-30 12:42 | PC.NURSE ---
PRE-YOLI RIGHT WRIST SPLINT PLACED PER ERP ORDERS
[2020-01-30 12:43] VITALS: BP 152/117; RESP 15; O2SAT 99
== END 2020-01-30 13:10 | disposition home or self-care (01) ==
PROVIDERS: Emergency Provider Emergency Medicine; PCP Family Medicine
DX: S52.614A Nondisplaced fracture of right ulna styloid process, initial encounter for closed fracture (principal); S63.501A Unspecified sprain of right wrist, initial encounter; W19.XXXA Unspecified fall, initial encounter
CPT/HCPCS: 29125; 73110; 99283; 99284

== ENCOUNTER 2020-02-06 10:19 | Outpatient (CLI) | payer MEDICARE, BC, SELFPAY ==
--- NOTE | ~2020-02-06 | XR_ITS ---
EXAMINATION: XR wrist RT 2V DATE: 02/06/2020 11:17 INDICATION: Medial right wrist pain post fall TECHNIQUE: Posteroanterior and lateral views of the right wrist were obtained. COMPARISON: none FINDINGS: There is decreased lucency consistent with interval healing along the previous noted fracture of the right ulnar styloid process which remains nondisplaced in essentially anatomic alignment. No other fr actures identified. Moderate to severe osteoarthritis at the first carpometacarpal joint. Mild osteoa rthritis at the triscaphe, first metacarpophalangeal and interphalangeal joints. Decreased mild soft tissue swelling about the ulnar styloid process. IMPRESSION: 1. Healing nondisplaced ulnar styloid process fracture. Reviewed, dictated and finalized at location B.
[2020-02-06 11:54] LABS: Anion Gap 6 mmol/L (8-16); Blood Urea Nitrogen 11 mg/dL (7-17); Calcium 8.5 mg/dL (8.4-10.2); Carbon Dioxide 28 mmol/L (22-30); Chloride 102 mmol/L (98-107); Cholesterol 122 mg/dL (0-200); Estimated Glomerular Filt Rate > 60; Glucose 90 mg/dL (65-105); HDL Direct 49 mg/dL; Potassium 3.4 mmol/L (3.4-5.0); Sodium 136 mmol/L (137-145); Triglycerides 101 mg/dL (<150)
[2020-02-06 12:08] LABS: LDL Cholesterol Direct 54 mg/dL
== END 2020-02-06 10:20 | disposition home or self-care (01) ==
PROVIDERS: PCP Family Medicine; Referring Provider Family Medicine; Visit Provider Physician Assistant
DX: E78.5 Hyperlipidemia, unspecified (principal); E87.6 Hypokalemia; Z98.84 Bariatric surgery status; S52.611A Displaced fracture of right ulna styloid process, initial encounter for closed fracture
CPT/HCPCS: 36415; 73100; 80048; 80061

== ENCOUNTER 2020-03-05 08:15 | Outpatient (CLI) | payer MEDICARE, BC, SELFPAY ==
--- NOTE | ~2020-03-05 | XR_ITS ---
EXAMINATION: XR wrist RT min 3V DATE: 03/05/2020 08:40 INDICATION: Nondisplaced fracture of right ulnar styloid process. TECHNIQUE: 4 views of right wrist were obtained. COMPARISON: Right wrist radiographs 02/06/2020, 01/30/2020 FINDINGS: Bone alignment is normal. Again seen is a nondisplaced avulsion fracture of ulnar styloid. Osteopenia is noted. There is moderate osteoarthritis of first carpometacarpal joint. IMPRESSION: 1. Unchanged nondisplaced avulsion fracture of ulnar styloid. 2. Moderate osteoarthritis of first carpometacarpal joint. Reviewed, dictated and finalized at location B. 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
== END 2020-03-05 08:16 | disposition home or self-care (01) ==
LOC: ANHIMG 08:22
PROVIDERS: PCP Family Medicine; Visit Provider Family Medicine
DX: S52.614D Nondisplaced fracture of right ulna styloid process, subsequent encounter for closed fracture with routine healing (principal); M19.031 Primary osteoarthritis, right wrist
CPT/HCPCS: 73110

== ENCOUNTER 2020-03-19 06:47 | Outpatient (CLI) | payer MEDICARE, BC, SELFPAY ==
--- NOTE | 2020-03-19 | ECG_ITS ---
Measurements Intervals [place] Rate: 59 P: 81 MI: 220 QRS: 44 QRSD: 85 T: 20 QT: 416 QTc: 413 Interpretive Statements SINUS BRADYCARDIA WITH FIRST DEGREE AV BLOCK DELAYED PRECORDIAL R/S TRANSITION NONSPECIFIC T-WAVE ABNORMALITY- ANT/INF LEADS ABNORMAL ECG Electronically Signed On 03-19-2020 7:27:59 INDOOR LANDSCAPE ARCHITECT by Johan Bush D.O.
== END 2020-03-19 06:48 | disposition home or self-care (01) ==
PROVIDERS: PCP Family Medicine
DX: I48.91 Unspecified atrial fibrillation (principal); R00.1 Bradycardia, unspecified; I44.0 Atrioventricular block, first degree
CPT/HCPCS: 93005

== ENCOUNTER 2020-04-06 09:00 | Outpatient (RCR) | payer MEDICARE, BC, SELFPAY ==
--- NOTE | 2020-03-08 16:12 | PTOPEVAL ---
PHYSICAL THERAPY EVALUATION Thank you for referring Conchita Hampton to [facility].? Tasha was evaluated for her right wrist/ulnar styloid fracture. The patient is scheduled to be seen for therapy? 1 x/week for 4 weeks. Please review, sign, date and return this plan of care RAFAL. I agree with and certify that the following plan of care is medically necessary. Referring Physician Date Attending Provider: Bisi Dumont MD *PT Outpatient Evaluation Start: 03/08/20 14:49 Freq: Status: Active Protocol: Document 03/08/20 14:50 MLV (Rec: 03/08/20 16:00 MLV [id number]) Assessment Status Evaluation Evaluation Information Problem Diagnosis right ulnar styloid fx ( nondisplaced) Onset 6 weeks ago Cause fall Additional Evaluation Detail The wrist injury is the first injury to her wrist. the patient is right handed. Subjective Information patient reports falling Query Text:As Reported By Patient/ backwards while hiking 6 weeks Family ago. Patient reports continued pain and also numbness from hand to shoulder . The patient is wearing a splint per MD to be worn another 4 weeks. The patient reports eagerness to recover and return to hiking without risk of reinjury. 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 Home Meds Must Be Re-entered With Each Visit. Pain Assessment Timing of Pain Assessment Timing of Pain Assessment Assessment Pain Scale Pain Scale Used Numeric (1 - 10) Self Report Pain Assessment Right Wrist(s) Reported Pain Level
--- NOTE | 2020-03-16 11:56 | PCPTNOTE ---
Patient did not show up for scheduled appointment this date. PT called patient-no answer. Left message and asked to return a call. Also reminded patient of next scheduled appt. time.
--- NOTE | 2020-03-23 10:48 | PCPTNOTE ---
Patient did not show up for scheduled appointment this date. PT attempted to call patient-no answer and unable to leave message at the number given.
--- NOTE | 2020-04-06 09:48 | PTOPEVAL ---
PHYSICAL THERAPY DISCHARGE SUMMARY Thank you for referring Conchita Hampton to [facility].? The patient has been seen for her right wrist fracture. The patient feels she can continue exercises on her own- plan to D/C therapy at this time. Please review, sign, date and return this plan of care RAFAL. I agree with and certify the following plan of care. Referring Physician Date Attending Provider: Bisi Dumont MD *PT Outpatient Evaluation Start: 03/08/20 14:49 Freq: Status: Active Protocol: Document 04/06/20 09:15 MLV (Rec: 04/06/20 09:38 MLV [id number]) Therapy Assessment Status Discharge Pain Assessment Timing of Pain Assessment Timing of Pain Assessment Assessment Pain Scale Pain Scale Used Numeric (1 - 10) Self Report Pain Assessment Right Wrist(s) Reported Pain Level 0 Pain Description With Movement Pain Frequency Acute Greatest Pain Intensity 5 Pain Aggravating Factors Lifting Pain Behaviors None Pain Score Pain Score 0: Self Report Interventions Used Interventions Used By Clinicians Education Pain Relief Interventions Used By Inactivity/Rest Patient Upper Extremity Range of Motion Wrist Range of Motion Right Wrist Flexion - Active 75 Wrist Extension - Active 62 Wrist Radial Deviation - Active 20 Wrist Ulnar Deviation - Active 32 Upper Extremity Muscle Strength Testing General Upper Extremity Strength Gross Upper Extremity Strength Comments right wrist isometric testin/5 throughout without pain General Exercise General Exercises Side Right Exercise Description instructed patient to focus on Query Text:Record Sets, Reps, manual stretch for wrist Resistance, and Position flexion and extension with review for each technique. Exercise Comments The patient shows good tolerance and technique for exercises that will be continued after therapy d/c'ed PT Clinical Summary Patient has improved with motion and strength at the right wrist and feels she is able to continue her exercises on her own. The patient prefers to D/C PT at this time. Goals are partially met and patient is able to continue working toward goals on her own. D/C PT at this time.
== END 2020-04-06 11:23 | disposition home or self-care (01) ==
LOC: ANHPT 09:00
PROVIDERS: PCP Family Medicine; Visit Provider Family Medicine
DX: S52.614D Nondisplaced fracture of right ulna styloid process, subsequent encounter for closed fracture with routine healing (principal)
CPT/HCPCS: 97110; 97161

== ENCOUNTER 2020-05-08 07:36 | Outpatient (CLI) | payer MEDICARE, BC, SELFPAY ==
--- NOTE | ~2020-05-08 | XR_ITS ---
EXAMINATION: XR wrist RT min 3V EXAM DATE: 05/08/2020 08:11 INDICATION: S52.611A - Displaced fracture of right ulna styloid process, TECHNIQUE: Right wrist frontal, frontal with ulnar deviation, oblique and lateral projections obtain ed and reviewed. Comparison is made to prior examination from 03/05/2020. FINDINGS: Right wrist scapholunate joint space is maintained. Previously seen ulnar styloid avulsion fracture line less well visualized, probably indicating healing. Small portion of the medial margin of the ulnar styloid now appears to be missing, could be sequela from avascular necrosis given that c annot identify any displaced fracture fragment. There is mild polyarticular primary osteoarthritis. IMPRESSION: As above Reviewed, dictated and finalized at location B. 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
[2020-05-08 08:26] LABS: Alanine Aminotransferase 28 U/L (4-35); Albumin Level 3.7 g/dL (3.5-5.1); Alkaline Phosphatase 197 U/L (38-126); Anion Gap 3 mmol/L (8-16); Aspartate Amino Transferase 29 U/L (14-36); Bilirubin,Total 0.6 mg/dL (0.2-1.3); Blood Urea Nitrogen 15 mg/dL (7-17); Calcium 9.3 mg/dL (8.4-10.2); Carbon Dioxide 30 mmol/L (22-30); Chloride 106 mmol/L (98-107); Estimated Glomerular Filt Rate > 60; Glucose 130 mg/dL (65-105); Potassium 3.9 mmol/L (3.4-5.0); Sodium 139 mmol/L (137-145)
== END 2020-05-08 07:37 | disposition home or self-care (01) ==
PROVIDERS: PCP Family Medicine; Referring Provider Physician Assistant Medical; Visit Provider Family Medicine
DX: S52.611A Displaced fracture of right ulna styloid process, initial encounter for closed fracture (principal); E87.6 Hypokalemia
CPT/HCPCS: 36415; 73110; 80053

== ENCOUNTER 2020-07-06 07:44 | Outpatient (CLI) | payer MEDICARE, BC, SELFPAY ==
--- NOTE | 2020-07-06 08:10 | ECG_ITS ---
Measurements Intervals [place] Rate: 101 P: ME: 0 QRS: 8 QRSD: 101 T: 31 QT: 381 QTc: 494 Interpretive Statements ATRIAL FIBRILLATION WITH RAPID VENTRICULAR RESPONSE ABNORMAL ECG Electronically Signed On 07-06-2020 8:20:45 INCLUSION SPECIALIST by Johan Bush D.O.
== END 2020-07-06 07:45 | disposition home or self-care (01) ==
PROVIDERS: PCP Family Medicine
DX: I48.0 Paroxysmal atrial fibrillation (principal); Z79.899 Other long term (current) drug therapy; R94.31 Abnormal electrocardiogram [ECG] [EKG]
CPT/HCPCS: 93005

== ENCOUNTER 2020-08-30 08:26 | Outpatient (CLI) | payer MEDICARE, BC, SELFPAY ==
--- NOTE | ~2020-08-30 | XR_ITS ---
EXAMINATION: XR shoulder RT min 2V EXAM DATE: 08/30/2020 08:57 INDICATION: M54.2 - Cervicalgia. TECHNIQUE: The following right shoulder projections obtained: frontal projection with internal rotati on, frontal projection with external rotation, Grashey, and scapular Y view (4+ views). Correlation i s made to contralateral shoulder same date. FINDINGS: No evidence of right shoulder rotator cuff calcific tendinosis. There is mild to moderat e glenohumeral and acromioclavicular joint primary osteoarthritis. There are no acute fractures or di slocations identified. There is no subcutaneous gas. The soft tissue is unremarkable. There are n o radiopaque foreign bodies. IMPRESSION: Mild to moderate right shoulder osteoarthritis. Reviewed, dictated and finalized at location B.
--- NOTE | ~2020-08-30 | XR_ITS ---
EXAMINATION: XR shoulder LT min 2V EXAM DATE: 08/30/2020 08:56 INDICATION: M54.2 - Cervicalgia. Ground level fall 3 months ago. TECHNIQUE: The following left shoulder projections obtained: frontal projection with internal rotatio n, frontal projection with external rotation, Grashey, and scapular Y view (4+ views). There is no p rior study for comparison. FINDINGS: No evidence of left shoulder rotator cuff calcific tendinosis. There is mild glenohumera l and acromioclavicular joint primary osteoarthritis. There are no acute fractures or dislocations id entified. There is no subcutaneous gas. The soft tissue is unremarkable. There are no radiopaque foreign bodies. IMPRESSION: Mild left shoulder osteoarthritis. Reviewed, dictated and finalized at location B.
--- NOTE | ~2020-08-30 | XR_ITS ---
EXAMINATION: XR cervical spine 4-5V EXAM DATE: 08/30/2020 08:56 INDICATION: M54.2 - Cervicalgia. States injury 3 months ago. Bilateral shoulder pain. TECHNIQUE: Cervical spine frontal, lateral, open-mouth odontoid projections. There is no prior stud y for comparison. FINDINGS: There is evidence of moderate uncovertebral joint arthropathy at C5-6 and C6-7 causing arturo e amount of neural foraminal stenosis. Overall moderate cervical facet arthropathy. There is no evide nce of acute cervical fracture. The odontoid process is intact. Pre-dens space is normal. Preverte bral soft tissue is normal. There are no soft tissue abnormalities identified. Moderate loss of the C5-6 and 6-7 disc height. The vertebral bodies are aligned. IMPRESSION: 1. Moderate cervical spondylosis. Reviewed, dictated and finalized at location B.
== END 2020-08-30 08:27 | disposition home or self-care (01) ==
LOC: ANHLAB 08:34 → ANHIMG 10:02
PROVIDERS: PCP Family Medicine; Visit Provider Family Medicine
DX: M54.2 Cervicalgia (principal); M47.812 Spondylosis without myelopathy or radiculopathy, cervical region; M19.012 Primary osteoarthritis, left shoulder; M19.011 Primary osteoarthritis, right shoulder
CPT/HCPCS: 72050; 73030

== ENCOUNTER 2020-09-03 10:30 | Outpatient (CLI) | payer MEDICARE, BC, SELFPAY ==
[2020-09-03 11:10] LABS: Cholesterol 151 mg/dL (0-200); HDL Direct 62 mg/dL; Triglycerides 137 mg/dL (<150)
[2020-09-03 11:20] LABS: LDL Cholesterol Direct 66 mg/dL
== END 2020-09-03 10:31 | disposition home or self-care (01) ==
PROVIDERS: PCP Family Medicine; Visit Provider Family Medicine
DX: R60.9 Edema, unspecified (principal); I10 Essential (primary) hypertension; Z98.84 Bariatric surgery status
CPT/HCPCS: 36415; 80061; 82607; 84443

== ENCOUNTER 2020-10-03 11:00 | Outpatient (RCR) | payer MEDICARE, BC, SELFPAY ==
--- NOTE | 2020-09-26 09:05 | PTOPEVAL ---
PHYSICAL THERAPY EVALUATION AND PLAN OF CARE Thank you for referring Conchita Hampton to [facility].? The patient is scheduled to be seen for therapy? 2x/week for 4 weeks. Please review, sign, date and return this plan of care RAFAL. I agree with and certify that the following plan of care is medically necessary. Referring Physician Date Attending Provider: Bisi Dumont MD Evaluation Cardiovascular History Hx Atrial Fibrillation Yes: CARDIOVERSION IN 2018. SEES DR RIVERA -LAST OV MAR 2019 Hx Cardiac Catheterization Yes: 2019-NO STENTS Hx Hypertension Yes Respiratory History Hx Respiratory Disorders No Significant History Gastrointestinal History Hx Appendectomy Yes Hx Cholecystectomy Yes Hx Gastric Bypass Surgery Yes: 2018 HEENT History Hx Tonsillectomy Yes: IN CHILDHOOD Reproductive History Hx Post Menopausal Yes Hx Tubal Ligation Yes Psychosocial History Hx Depression Yes: SEES PSYCHIATRIST FOR DEPRESSION AND DOES ECT TREATMENTS Diagnosis bilateral shoulder pain and neck pain Onset 3 months Subjective Information Conchita is here today with neck Query Text:As Reported By Patient/ and shoulder pain stating Family that she feels frozen. States it is getting worse. Numbness and tingling into her fingers that comes and goes. She is not sure of mechanism. She states she is working on getting yard word done but by the end of the day she states she is in so much pain. Self Report Pain Assessment Bilateral Shoulder(s) Reported Pain Level 9 Pain Description Stabbing Pain Frequency Acute,Continuous Lowest Pain Intensity 9 Greatest Pain Intensity 10 Pain Aggravating Factors Exercise/Activity Other Pain Aggravating Factors yard work, gardening, housework Pain Score Pain Score 9: Self Report Interventions Used Interventions Used By Clinicians Exercise Cervical and Lumbar ROM Cervical ROM Cervical Flexion (0-60) 25 Query Text:Active in Degrees Cervical Extension (0-70) 0 Query Text:Active in Degrees Cervical Rotation Right (0-90) 35 Query Text:Active in Degrees Cervical Rotation Left (0-90) 25 Query Text:Active in Degrees Upper Extremity Range
--- NOTE | 2020-10-08 17:53 | PCPTNOTE ---
Patient called & cancelled scheduled appointment tomorrow due to A-fib problems
--- NOTE | 2020-10-17 08:54 | PCPTNOTE ---
Addendum entered by Mckenna Buenrostro, PT, DPT 10/17/20 13:18: Spoke with patient on the phone about her care. She is having an ablation procedure on 10/22/2020 and will need a release from physician in order to return to therapy. I instructed her in this and that we would be able to hold for 30days from now, but after that would need a new doctor's order. Original Note: Patient did not show up for scheduled appointment this date. Called patient and left a message asking her to call back and let us know if she would like to continue therapy at this time.
--- NOTE | 2020-11-05 07:31 | PCPTNOTE ---
PHYSICAL THERAPY DISCHARGE NOTE Attending Provider: Bisi Dumont MD Patient:Conchita Hampton Date of :1955 Patient has not returned for any further treatments since 10/03/2020, therefore she will be discharged at this time. Patient?s initial visit was on 09/26/2020. She called to report that she was better and did not need further therapy. Thank you for referring this patient to [facility]. Please review, sign, date and return this discharge summary RAFAL. I have been updated about the patient's current status and I agree with discharge from the above service at this time. Referring Physician Date
== END 2020-11-08 16:53 | disposition home or self-care (01) ==
LOC: ANHPT 11:00
PROVIDERS: PCP Family Medicine; Visit Provider Family Medicine
DX: M54.2 Cervicalgia (principal); M25.519 Pain in unspecified shoulder
CPT/HCPCS: 97110; 97140; 97162

== ENCOUNTER 2020-10-27 17:29 | Emergency (ER) | payer MEDICARE, BC, SELFPAY ==
[2020-10-27] VITALS (18 sets, daily range): BP systolic 123–160; BP diastolic 84–104; PULSE 78–126; RESP 15–21; TEMP 36.1–36.7; O2SAT 21–100
--- NOTE | 2020-10-27 17:31 | ECG_ITS ---
Measurements Intervals [place] Rate: 125 P: 66 OR: 208 QRS: 1 QRSD: 84 T: 5 QT: 398 QTc: 576 Interpretive Statements ATRIAL FLUTTER/TACHYCARDIA WITH RAPID VENTRICULAR RESPONSE DELAYED PRECORDIAL R/S TRANSITION BASELINE ARTIFACT- II, III, AVR, AVL, AVF, V1-V6 ABNORMAL ECG Electronically Signed On 10-27-2020 20:58:53 CDT by Johan Bush D.O.
[2020-10-27 17:52] LABS: Basophils Percent Auto 0.5 % (0.2-1.2); Eosinophils Absolute Auto 0.3 K/mm3 (0-0.3); Eosinophils Percent Auto 3.4 % (0-4.4); Hematocrit 37.3 % (37.0-47.0); Hemoglobin 11.7 g/dL (12.0-15.0); Immature Granulocyte Absolute 0.02 K/mm3 (0.00-0.031); Immature Granulocyte Percent A 0.2 % (0-0.5); Lymphocytes Absolute Auto 1.53 K/mm3 (0.9-3.2); Lymphocytes Percent Auto 18.4 % (18.3-44.2); Mean Corpuscular HGB Conc 31.4 g/dl (32-36); Mean Corpuscular Volume 89.2 fl (80-100); Mean Platelet Volume 10.4 fl (7.4-10.4); Monocytes Absolute Auto 0.4 K/mm3 (0.1-0.6); Monocytes Percent Auto 5.1 % (2.6-8.5); Neutrophils Percent Auto 72.4 % (45.5-73.1); Platelet Count Result 269 k/mm3 (150-375); Red Blood Count 4.18 M/mm3 (4.2-5.4); Red Cell Distribution Width 14.6 % (11.5-14.5); White Blood Count 8.3 K/mm3 (4.5-10.0)
[2020-10-27 18:00] LABS: Anion Gap 9 mmol/L (8-16); Blood Urea Nitrogen 11 mg/dL (7-17); Calcium 9.4 mg/dL (8.4-10.2); Carbon Dioxide 23 mmol/L (22-30); Chloride 107 mmol/L (98-107); Estimated CRCL calculation 51 ml/min; Estimated Glomerular Filt Rate > 60; Glucose 173 mg/dL (65-105); Potassium 3.3 mmol/L (3.4-5.0); Sodium 139 mmol/L (137-145)
[2020-10-27 18:01] LABS: INR 1.1; Prothrombin Time 14.4 Seconds (11.1-14.7)
[2020-10-27 18:02] LABS: Partial Thromboplastin Time 30.8 SECONDS (22.3-36.8)
[2020-10-27 18:03] LABS: Alanine Aminotransferase 18 U/L (4-35); Albumin Level 4.2 g/dL (3.5-5.1); Alkaline Phosphatase 162 U/L (38-126); Aspartate Amino Transferase 27 U/L (14-36); Bilirubin,Total 0.6 mg/dL (0.2-1.3)
--- NOTE | 2020-10-27 18:06 | ED.ARRPALP ---
HPI - Arrhythmia/Palpitations General Chief Complaint: Arrhythmia/Palpitations <Isac Long MD - Last Filed: 10/27/20 19:18> Stated Complaint: AFIB <Isac Long MD - Last Filed: 10/27/20 19:18> Time Seen by Provider: 10/27/20 17:34 <Isac Long MD - Last Filed: 10/27/20 19:18> Source: patient, family and RN notes reviewed <Isac Long MD - Last Filed: 10/27/20 19:18> Mode of arrival: ambulatory <Isac Long MD - Last Filed: 10/27/20 19:18> Limitations: no limitations <Isac Long MD - Last Filed: 10/27/20 19:18> History of Present Illness HPI narrative: Patient is 65 years old white female status post cardiac ablation 6 days ago. Currently on carvedilol 12.5 mg every 12 hours and dofetilide and Eliquis. Patient called her floor technician yesterday because of palpitation and her A. fib still running fast. The carvedilol was increased to 2 tablets every 12 hours instead of 1 tablet every 12 hours. Patient did not do it , is telling me because is not written on the bottle although she was informed to do 2 tablets every 12 hours by the phone. Patient denies any fever, chills, nausea, vomiting, shortness of breath or chest pain. <Isac Long MD - Last Filed: 10/27/20 19:18> Related Data Home Medications: Home Medications Medication Instructions Recorded Confirmed calcium carbonate 430 mg PO BID 07/16/19 08/29/20 cholecalciferol (vitamin D3) 1,000 unit PO DAILY 07/16/19 08/29/20 pyridoxine (vitamin B6) 100 mg 100 mg PO DAILY 05/22/20 08/29/20 tablet carvedilol 12.5 mg tablet 12.5 mg PO Q12H 07/26/20 08/29/20 dofetilide 250 mcg capsule 250 mcg PO Q12H 07/26/20 08/29/20 lisinopril 5 mg tablet 5 mg PO DAILY 07/26/20 08/29/20 <Isac Long MD - Last Filed: 10/27/20 19:18> Allergies/Adverse Reactions: Allergies Allergy/AdvReac Type Severity Reaction Status Date / Time No Known Allergies Allergy Verified 10/27/20 17:39 <Isac Long MD - Last Filed: 10/27/20 19:18> Review of Systems Review of Systems: Narrative: CONSTITUTIONAL: Denies fever, chills, or sweats. EYES: Denies visual changes, redness, or discharge. ENT: Denies rhinorrhea, congestion, sore throat, or otalgia. CARDIOVASCULAR: Denies chest pain, palpitations, or edema. RESPIRATORY: Denies cough or dyspnea. GASTROINTESTINAL: Denies abdominal pain, nausea, vomiting, or diarrhea. GENITOURINARY: Denies dysuria or hematuria. SKIN: Denies rash or itching. MUSCULOSKELETAL: Denies back pain, joint pain, or myalgia. NEUROLOGIC: Denies headache, numbness, or weakness. PSYCHIATRIC: Denies anxiety or depression. <Isac Long MD - Last Filed: 10/27/20 19:18> [facility] Past Medical History Medical History: Medical History Abnormal mammogram (~07/20/12) Acute UTI Anxiety Arthritis BMI 24.0-24.9, adult Depression Receiving ECT treatments DVT prophylaxis Elevated troponin Fracture of right ulnar styloid History of cardioversion (~09/07/17) History of cardioversion 5.4.18, , 3..21 Hx of ventricular tachycardia Hypokalemia Normal ECG (~07/17/12) Old myocardial infarction Paroxysmal atrial fibrillation 6.21: cardiac radiofrequency ablation 3..21 cardioversion atrial fib converted by cardioversion/ hypokalemia cardioversion 2017 2018 stress echo no ischemia 2018 echocardiogram: lvh 2017 lexiscan: ischemia Postmenopausal Right wrist pain Skin cancer Syncope <Isac Long MD - Last Filed: 10/27/20 19:18> Surgical History Surgical History: Surgical History Gastric bypass status for obesity December 2018 after failure of gastric band. H/O cardiac radiofrequency ablation 10.22. History of cardiac cath (~12/08/18) Without stent placement Hx of appendectomy Hx of cholecystectomy Hx of laparoscopic gastric banding (~2009) With subsequent
[2020-10-27 18:16] LABS: Troponin I 0.182 ng/mL (0.000-0.034)
[2020-10-27] MEDS: LORazepam (*CRX) 0.5 MG TABLET 1 MG PO (18:47)
--- NOTE | 2020-10-27 19:05 | ECG_ITS ---
Measurements Intervals [place] Rate: 111 P: 62 OK: 195 QRS: -3 QRSD: 82 T: 11 QT: 347 QTc: 473 Interpretive Statements SINUS TACHYCARDIA VENTRICULAR PREMATURE COMPLEX DELAYED PRECORDIAL R/S TRANSITION NONSPECIFIC T-WAVE ABNORMALITY- INFERIOR LEADS BASELINE ARTIFACT- II, III, AVR, AVF, V3-V6 ABNORMAL ECG Electronically Signed On 10-30-2020 10:43:53 CDT by Johan Bush D.O.
[2020-10-27] MEDS: carvediloL 25 MG TABLET PO (19:24)
[2020-10-27 20:53] LABS: Troponin I 0.169 ng/mL (0.000-0.034)
== END 2020-10-27 21:22 | disposition home or self-care (01) ==
PROVIDERS: Emergency Provider Emergency Medicine; PCP Family Medicine
DX: I48.20 Chronic atrial fibrillation, unspecified (principal); I25.2 Old myocardial infarction; Z79.01 Long term (current) use of anticoagulants
CPT/HCPCS: 36415; 80048; 80076; 84443; 84484; 85025; 85610; 85730; 93005; 99284; A9270

== ENCOUNTER 2021-02-15 11:03 | Outpatient (CLI) | payer MEDICARE, BC, SELFPAY ==
--- NOTE | 2021-02-15 | ECG_ITS ---
Measurements Intervals [place] Rate: 98 P: AL: 0 QRS: 13 QRSD: 81 T: 18 QT: 351 QTc: 449 Interpretive Statements ATRIAL FIBRILLATION VENTRICULAR PREMATURE COMPLEX BORDERLINE T WAVE ABNORMALITY- INFERIOR LEADS BASELINE WANDER- I, II ABNORMAL ECG Electronically Signed On 02-15-2021 11:51:31 CDT by Johan Bush D.O.
== END 2021-02-15 11:04 | disposition home or self-care (01) ==
PROVIDERS: PCP Family Medicine
DX: I48.0 Paroxysmal atrial fibrillation (principal)
CPT/HCPCS: 93005

== ENCOUNTER 2021-04-03 07:57 | Outpatient (CLI) | payer MEDICARE, BC, SELFPAY ==
--- NOTE | 2021-04-03 | ECG_ITS ---
Measurements Intervals [place] Rate: 108 P: OK: 0 QRS: 40 QRSD: 85 T: 58 QT: 339 QTc: 456 Interpretive Statements ATRIAL FIBRILLATION WITH RAPID VENTRICULAR RESPONSE ABNORMAL ECG Electronically Signed On 04-03-2021 8:38:31 PROJECTION ENGINEER by Johan Bush D.O.
== END 2021-04-03 07:58 | disposition home or self-care (01) ==
LOC: ANHIMG 08:04
PROVIDERS: PCP Family Medicine
DX: I48.0 Paroxysmal atrial fibrillation (principal); R94.31 Abnormal electrocardiogram [ECG] [EKG]
CPT/HCPCS: 93005

== ENCOUNTER 2021-09-18 09:26 | Outpatient (CLI) | payer MEDICARE, BC, SELFPAY ==
--- NOTE | 2021-09-18 | ECG_ITS ---
Measurements Intervals [place] Rate: 65 P: 76 DE: 196 QRS: 0 QRSD: 101 T: 10 QT: 460 QTc: 482 Interpretive Statements SINUS RHYTHM ATRIAL COUPLET AND ATRIAL PREMATURE COMPLEX BORDERLINE T WAVE ABNORMALITY- INFERIOR LEADS PROLONGED QT INTERVAL ABNORMAL ECG Electronically Signed On 09-18-2021 12:17:06 CDT by Johan Bush D.O.
[2021-09-18 10:31] LABS: Alanine Aminotransferase 17 U/L (6-35); Aspartate Amino Transferase 36 U/L (14-36)
== END 2021-09-18 09:27 | disposition home or self-care (01) ==
PROVIDERS: PCP Family Medicine
DX: I48.0 Paroxysmal atrial fibrillation (principal); R94.31 Abnormal electrocardiogram [ECG] [EKG]
CPT/HCPCS: 36415; 84450; 84460; 93005

== ENCOUNTER 2023-02-05 10:37 | Outpatient (CLI) | payer MEDICARE, BC, SELFPAY ==
[2023-02-05 19:43] LABS: Alanine Aminotransferase 14 U/L (6-35); Albumin Level 4.3 g/dL (3.5-5.1); Alkaline Phosphatase 181 U/L (38-126); Anion Gap 7 mmol/L (8-16); Aspartate Amino Transferase 25 U/L (14-36); Bilirubin,Total 0.7 mg/dL (0.2-1.3); Blood Urea Nitrogen 13 mg/dL (7-17); Calcium 9.4 mg/dL (8.4-10.2); Carbon Dioxide 27 mmol/L (22-30); Chloride 104 mmol/L (98-107); Cholesterol 226 mg/dL (0-200); Estimated Glomerular Filt Rate > 60; Glucose 94 mg/dL (65-110); HDL Direct 73 mg/dL; Potassium 4.7 mmol/L (3.4-5.0); Sodium 138 mmol/L (137-145); Triglycerides 111 mg/dL (<150)
[2023-02-05 19:53] LABS: LDL Cholesterol Direct 119 mg/dL
[2023-02-05 20:11] LABS: Hepatitis C Virus Antibody Negative (Negative)
[2023-02-05 20:12] LABS: Basophils Absolute Auto 0.1 K/mm3 (0.0-0.1); Basophils Percent Auto 1.3 % (0.2-1.2); Eosinophils Absolute Auto 0.2 K/mm3 (0-0.3); Eosinophils Percent Auto 2.4 % (0-4.4); Hematocrit 39.9 % (37.0-47.0); Immature Granulocyte Absolute 0.02 K/mm3 (0.00-0.031); Immature Granulocyte Percent A 0.3 % (0-0.5); Lymphocytes Absolute Auto 2.09 K/mm3 (0.9-3.2); Lymphocytes Percent Auto 29.1 % (18.3-44.2); Mean Corpuscular HGB Conc 30.1 g/dl (32-36); Mean Corpuscular Hemoglobin 25.4 pg (26-34); Mean Corpuscular Volume 84.5 fl (80-100); Mean Platelet Volume 11.6 fl (7.4-10.4); Monocytes Absolute Auto 0.6 K/mm3 (0.1-0.6); Monocytes Percent Auto 8.5 % (2.6-8.5); Neutrophils Absolute Auto 4.2 K/mm3 (1.3-6.7); Neutrophils Percent Auto 58.4 % (45.5-73.1); Platelet Count Result 355 k/mm3 (150-375); Red Blood Count 4.72 M/mm3 (4.2-5.4); Red Cell Distribution Width 14.8 % (11.5-14.5); White Blood Count 7.2 K/mm3 (4.5-10.0)
[2023-02-05 20:18] LABS: Vitamin D 25 Hydroxy 42.3 ng/mL
[2023-02-05 20:37] LABS: Ferritin 6.53 ng/mL (11.1-264)
== END 2023-02-05 10:38 | disposition home or self-care (01) ==
LOC: ANHGOSHLAB 10:39
PROVIDERS: PCP Family Medicine; Visit Provider Family Medicine
DX: I48.0 Paroxysmal atrial fibrillation (principal); Z98.84 Bariatric surgery status; I10 Essential (primary) hypertension; Z11.59 Encounter for screening for other viral diseases
CPT/HCPCS: 36415; 80053; 80061; 82306; 82607; 82728; 84443; 85025; 86803

== ENCOUNTER 2025-01-24 08:45 | Outpatient (CLI) | payer MEDICARE, SELFPAY ==
--- OUTSIDE RECORDS SUMMARY | 2025-01-24 09:01 | XMS_ITS | Encounter Summary ---
Author Organization [facility] Address [address] [place] [address] Care Team Providers Care Teacher Aide Clerical Name Role Phone Bisi Dumont MD Primary Care Provider + Bisi Dumont MD Primary Care Provider + Imelda Carrasco RN Unavailable [phone] Encounter Details Date Type Department Care Team (Late st Contact Info) Description 06/13/2016 Orders Only [facility] ProviderJimmie MD [address] [place] [id number] Social History Tobacco Use Types Packs/Day Years Used Date Smoking Tobacco: Never Alcohol Use Standard Drinks/Week Comments No 0 (1 standard drink = 0.6 oz pur e alcohol) Comments Unknown Sex and Gender Information Value Date Recorded Sex Assigned at Not on file Legal Sex Female 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 Historical Provider [facility] PROCE DURES Final Result * CARDIOLOGY REPORT (06/13/2016) Anatomical Region Laterality Modality Other Narrative 06/13/2016 Ordered by an unspecified provider. Historical Provider [facility] PROCE [place] Final Result documented in this encounter Visit Diagnoses Not on filedocumented in this encounter Care Teams Teacher Aide Clerical Relationship Specialty Start Date End Date Bisi Dumont MD PCP - General 07/25/16 Bisi Dumont MD PCP - General 04/04/16 07/24/16 Imelda Carrasco, RN [address] [address] [facility] Outpatient Meat Molder 07/18/19 07/18/19 documented as of this encounter
--- OUTSIDE RECORDS SUMMARY | 2025-01-24 09:01 | XMS_ITS | Encounter Summary ---
Author Organization [facility] Address [address] [place] [address] Phone Care Team Providers Care Director [facility] Name Role Phone Bisi Dumont MD Primary Care Provider + Encounter Details Date Type Department Care Team (Latest Contact Info) Description 09/18/2021 Orders Only [facility] Scanning, Provider Social History Tobacco Use Types Packs/Day Years Used Date Smoking Tobacco: Never Smokeless Tobacco: Never Alcohol Use Standard Drinks/Week Comments No 0 (1 standard drink = 0.6 oz pur e alcohol) Social Connection and Isolation Panel Answer Date Recorded Frequency of Communication with Friends and Fami ly Never 05/25/2019 Frequency of Social Gatherings with Friends and Family Never 05/25/2019 Attends Voodoo Services Never 05/25 Active Member of Clubs or Organizations No 05/25/2019 Attends Club or Organization Meetings Never 05/25/2019 Marital Status 05/25/2019 AUDIT-C Answer Date Recorded Q1: How often do you have a drink containing alc ohol? Never 03/18/2021 Average Number of Drinks Not on file 021 Q3: How often do you have si x or more drinks on one occasion? Never 03/18/2021 PHQ-2 Answer Date Recorded PHQ-2 Total Score (If total score is 3 or more points, staff should administer the PHQ-9) 2 10/22/2020 Comments No Sex and Gender Information Value Date Recorded Sex Assigned at Not on file Legal Sex Female 2:16 AM LUMBER CARRIER Gender Identity Not on file Sexual Orientation Not on file documented as of this encounter Plan of Treatment Not on file documented as of this encounter Procedures Procedure Name Priority Date/Time Associated Diagnosis Comments CARDIOLOGY DOCUMENT SCAN 09/18/2021 documented in this encounter Results * CARDIOLOGY DOCUMENT SCAN (09/18/2021) Anatomical Region Laterality Modality Other us Provider Scanning [facility] PROCEDURES Final Result documented in this encounter Visit Diagnoses Not on filedocumented in this encounter Care Teams Director [facility] [employer] Relationship Specialty Start Date End Date Bisi Dumont MD PCP - General 07/25/16 documented as of this encounter
--- OUTSIDE RECORDS SUMMARY | 2025-01-24 09:01 | XMS_ITS | Encounter Summary ---
Author Organization [facility] Address [address] [facility] [address] [place] [address] Care Team Providers Care Earth Observations Chief Scientist Name Role Phone Bisi Dumont MD Primary Care Provider + Bisi Dumont MD Primary Care Provider + Imelda Carrasco RN Unavailable [phone] Encounter Details Date Type Department Care Team (Late st Contact Info) Description 05/30/2016 Orders Only [facility] ProviderJimmie MD [address] [place] [id number] Social History Tobacco Use Types Packs/Day Years Used Date Smoking Tobacco: Never Alcohol Use Standard Drinks/Week Comments No 0 (1 standard drink = 0.6 oz pur e alcohol) Comments Unknown Sex and Gender Information Value Date Recorded Sex Assigned at Not on file Legal Sex Female 2:16 AM INSPECTION ENGINEER Gender Identity Not on file Sexual Orientation Not on file documented as of this encounter Plan of Treatment Not on file documented as of this encounter Procedures Procedure Name Priority Date/Time Associated Diagnosis Comments CARDIOLOGY REPORT 05/30/2016 documented in this encounter Results * CARDIOLOGY REPORT (05/30/2016) Anatomical Region Laterality Modality Other Narrative 05/30/2016 Ordered by an unspecified provider. Historical Provider [facility] BIPIN [place] Final Result documented in this encounter Visit Diagnoses Not on filedocumented in this encounter Care Teams Earth Observations Chief Scientist Relationship Specialty Start Date End Date Bisi Dumont MD PCP - General 07/25/16 Bisi Dumont MD PCP - General 04/04/16 07/24/16 Imelda Carrasco, RN [address] [address] [facility] Outpatient Cost Report Clerk 07/18/19 07/18/19 documented as of this encounter
--- OUTSIDE RECORDS SUMMARY | 2025-01-24 09:01 | XMS_ITS | Clinical Summary ---
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 bypasses stomach) -Vitamin D3 1,000 units qD (liquid) -B12 500 mcg qD -Phos-NaK 1 packet TID -Aquadeks with Zinc (chewable gummies) qD -Protonix 40mg BID (gastric pouch ulcer treatment) -Tigan PRN for nausea (does not cause QTc prolongation) -Calorie Count, daily weights -Uses walker; PT/OT to eval/treat; up with assist only (recent fall) Assessment & Plan (06/01/2019 10:14 AM SPONGE FISHERMAN): Continues to receive NJ tube feeds, and now with small PO intake she tolerates well. Tired appearing, but mildly improved. Slowly losing weight over past couple of days (see above). Stopped daily CBC and BMP (labs stable for several days). Plan: -Continue NJ tube feeds (follow RD consult notes for recommendations), Ensure high protein supplements -Per surgery, do not administer medications through NJ tube (likely worse absorption as it bypasses stomach) -Vitamin D3 1,000 units qD (liquid) -B12 500 mcg qD -Phos-NaK 1 packet TID -Aquadeks with Zinc (chewable gummies) qD -Protonix 40mg BID (gastric pouch ulcer treatment) -Tigan PRN for nausea (does not cause QTc prolongation) -Calorie Count, daily weights -Uses walker; PT/OT to eval/treat; up with assist only (recent fall) Assessment & Plan (05/31/2019 1:16 PM SPONGE FISHERMAN): Continues to receive NJ tube feeds, but eating very minimal/no PO. Tired appearing, but mildly improved. Currently 166 lbs and still slowly losing weight. Tube feeds do not seem currently sufficient. Plan: -Continue NJ tube feeds (follow RD consult notes for recommendations), Ensure high protein supplements -Per surgery, do not administer medications through NJ tube (likely worse absorption as it bypasses stomach) -Vitamin D3 1,000 units qD (liquid) -B12 500 mcg qD -Phos-NaK 1 packet TID -Aquadeks with Zinc (chewable gummies) qD -Protonix 40mg BID (gastric pouch ulcer treatment) -Tigan PRN for nausea (does not cause QTc prolongation) -Calorie Count, daily weights -BMP and CBC daily -Uses walker; PT/OT to eval/treat; up with assist only (recent fall) Assessment & Plan (05/30/2019 10:47 AM SPONGE FISHERMAN): Continues to receive NJ tube feeds, but eating very minimal/no PO. Tired appearing, but mildly improved. Has gained net 13 lbs since admission, but lost 3lbs since 05/26. Will try to find [employer] cream shakes for supplement Plan: -Continue NJ tube feeds (follow RD consult notes for recommendations), Ensure high protein supplements, and peripheral IV for fluids -Per surgery, do not administer medications through NJ tube (likely worse absorption as it bypasses stomach) -Vitamin D3 1,000 units qD (liquid) -B12 500 mcg qD -Phos-NaK 1 packet TID -Aquadeks with Zinc (chewable gummies) qD -Protonix 40mg BID (gastric pouch ulcer treatment) -Tigan PRN for nausea (does not cause QTc prolongation) -Calorie Count, daily weights -BMP and CBC daily -Uses walker; PT/OT to eval/treat; up with assist only (recent fall) Assessment & Plan (05/28/2019 10:07 AM SPONGE FISHERMAN): Continues to receive NJ tube feeds, but eating very minimal/no PO. Tired appearing, but mildly improved. Has gained 16 lbs since admission. Added zinc chewable gummies (low zinc at 0.44). Will try to find [employer] cream shakes for supplement Plan: -Continue [place] tube feeds (follow RD consult notes for recommendations), Ensure high protein supplements, and peripheral IV for fluids -Per surgery, do not administer medications through [place] tube (likely worse absorption as it bypasses stomach) -Vitamin D3 1,000 units qD (liquid) -B12 500 mcg qD -Phos-NaK 1 packet TID -Aquadeks with Zinc (chewable gummies) qD -Protonix 40mg BID (gastric pouch ulcer treatment) -Tigan PRN for nausea (does not cause QTc prolongation) -Calorie Count, daily weights -BMP and CBC daily -Uses walker; PT/OT to eval/treat Assessment & Plan (05/27/2019 2:40 PM SPONGE FISHERMAN): Continues to receive NJ tube feeds, but eating very minimal PO. Tired appearing, but mildly improved. Has gained 16 lbs since admission. Stopped Sucralfate to lower pill burden and assist with better nutrient absorption. Plan: -Continue [place] tube feeds (follow RD consult notes for recommendations), Ensure high protein supplements, and peripheral IV for fluids -Per surgery, do not administer medications through [place] tube (likely worse absorption as it bypasses stomach) -Vitamin D3 1,000 units qD (liquid) -B12 500 mcg qD -Phos-NaK 1 packet TID -Protonix 40mg BID (gastric pouch ulcer treatment) -Tigan PRN for nausea (does not cause QTc prolongation) -Calorie Count, daily weights -Follow up zinc, copper, and iron panels -BMP and CBC daily -Uses walker; PT/OT to eval/treat Assessment & Plan (05/26/2019 4:14 PM SPONGE FISHERMAN): 50 lbs weight loss in 5 months after bariatric surgery 12/2018 (gastric sleeve removed, Teri-en-Y performed). Currently receiving NG tube feeds and peripheral IV for fluids. Was on surgery service 1 week prior to transfer to psychiatry; was stabilized medically there. Law Office Manager consulted and following. Phosphorous was downtrending; now normal range with repletion. Plan: -Continue NG tube feeds (follow RD consult notes for recommendations), Ensure high protein supplements, and peripheral IV for fluids -Per surgery, do not administer medications through [place] tube (likely worse absorption as it bypasses stomach) -Vitamin D3 1,000 units qD (liquid) -B12 500 mcg qD -Mag-Ox 400mg qD -Phos-NaK 1 packet TID -Taper off sucralfate, now BID (can prevent absorption of meds and nutrition) -Protonix 40mg BID (ulcer prophylaxis) -Tigan PRN for nausea (does not cause QTc prolongation) -Calorie Count, daily weights -Follow up zinc, copper, and iron panels -BMP and CBC daily -Uses walker; PT/OT to eval/treat Assessment & Plan (05/25/2019 4:56 PM SPONGE FISHERMAN): 50 lbs weight loss in 5 months after bariatric surgery 12/2018 (gastric sleeve removed, Teri-en-Y performed). Currently receiving NG tube feeds and peripheral IV for fluids. Was on surgery service 1 week prior to transfer to psychiatry; was stabilized medically there. Law Office Manager consulted and following. Phosphorous was downtrending; will replenish and monitor Plan: -Continue NG tube feeds (follow RD consult notes for recommendations), Ensure high protein supplements, and peripheral IV for fluids -Vitamin D3 1,000 units qD (liquid) -B12 500 mcg qD -Mag-Ox 400mg BID -Phos-NaK 1 packet TID -Taper off sucralfate, now BID (can prevent absorption of meds and nutrition) -Protonix 40mg BID (ulcer prophylaxis) -Tigan PRN for nausea (does not cause QTc prolongation) -Calorie Count, daily weights -Follow up zinc, copper, and iron panels -BMP and CBC daily Pulmonary HTN 02/24/2017 Weight gain 10/02/2016 nursing home current use of anticoagulant therapy 1 06/05/2015 Overview (08/01/2016): Chronic anticoagulation Essential hypertension 04/04/2016 Overview (08/01/2016): Essential hypertension Assessment & Plan (02/12/2021 12:34 PM CDT): Cont ACEI and coreg Assessment & Plan (02/11/2021 5:00 PM CDT): Cont ACEI and coreg Assessment & Plan (10/23/2020 9:41 AM CDT): Resume Coreg, given episode of hypotension during procedure, lisinopril held overnight. Resume at discharge Assessment & Plan (10/22/2020 11:38 PM CDT): Resume Coreg, given episode of hypotension during procedure, will hold lisinopril overnight, can likely restart in the morning if stable. Paroxysmal A-fib 04/04/2016 Overview (06/01/2019): Long-standing history of Paroxysmal Afib that requires cardioversion when it occurs. Well-controlled on Amiodarone 200mg qD, Eliquis 5mg BID, and Metoprolol 12.5mg BID (switched to XL 25mg qD to reduce pill burden). QTc interview has been significantly prolonged during admission (recent values 545, 561, 523). Cardiology consulted and determined that QTc is likely somewhat falsely elevated, due to bradycardia (although still somewhat prolonged). Also noted that patient should be kept on amiodarone, as when she does have Afib, it is relatively severe requiring cardioversion. Recommended dose of amiodarone could be cut in half to 100mg qD. Also recommended adding Atorvastatin 40mg qD for CAD and keeping metoprolol. Assessment & Plan (02/12/2021 12:34 PM CDT): Resume eliquis Assessment & Plan (02/11/2021 4:59 PM CDT): Resume eliquis Assessment & Plan (10/23/2020 9:40 AM CDT): Long history of symptomatic paroxysmal atrial fibrillation status post DCCV x2 previously on amiodarone (discontinued secondary to long QT) now on dofetilide and beta-maddy. Admitted for elective radiofrequency ablation/pulmonary vein isolation. Exam with some irregularity but telemetry demonstrating sinus rhythm. No overnight events. Likely discharge today Assessment & Plan (10/22/2020 11:37 PM CDT): Long history of symptomatic paroxysmal atrial fibrillation status post DCCV x2 previously on amiodarone (discontinued secondary to long QT) now on dofetilide and beta-maddy. Admitted for elective radiofrequency ablation/pulmonary vein isolation. Exam with some irregularity but telemetry demonstrating sinus rhythm. -will repeat EKG -monitor overnight -resume home Coreg and dofetilide -resume home Eliquis -continue monitoring on EKG, follow labs/electrolytes in the morning -additional management per Cardiology Assessment & Plan (07/19/2020 11:35 AM CDT): Very symptomatic with episodes of atrial fibrillation, and symptoms have been relatively persistent over the past 2 weeks with unclear trigger. dofetilide on hold this am with last ekg QTC 535 ms - repeat EKG this am shows QTC 502 ms EP team notified- and now dofetilide is off hold Plan for ekg 2 hours after each dose - Will plan for 6 inpatient doses; if she remains in AFib, then we will pursue electrical cardioversion - Discontinue Flecainide, last dose 07/13 - AC: continue Eliquis 5mg BID - Continue metoprolol tartrate 25mg BID Assessment & Plan (07/18/2020 3:00 PM CDT): Very symptomatic with episodes of atrial fibrillation, and symptoms have been relatively persistent over the past 2 weeks with unclear trigger. - Continue dofetilide 250mcg BID, 2nd dose this morning, QT ~520, EKG reviewed by Dr. Lozaon - Will plan for 6 inpatient doses; if she remains in AFib, then we will pursue electrical cardioversion - ECG 2 hours after each dose of dofetilide - Discontinue Flecainide, last dose 07/13 - AC: continue Eliquis 5mg BID - Continue metoprolol tartrate 25mg BID Assessment & Plan (07/15/2019 10:22 AM CDT): Paroxysmal. No current afib. -Continue Eliquis 5 BID -Stopping amiodarone to prevent QT prolongation -Stopping metoprolol 25XL as her rate is well controlled without it and she presented with concern for bradycardia Assessment & Plan (06/14/2019 10:12 AM SPONGE FISHERMAN): No repeated falls and QTc has recently been in appropriate range, although elevated 06/07 to 649 and 06/09 to 639. If QTc persistently elevated, may need to re- consult Cardiology regarding amiodarone regimen. Alternatively, if QTc remains stably WNL, may consider initiating first-line anti-emetics currently avoided due to their risk of further prolonging QTc. Seemingly Q2D pattern to QTc prolongation possibly 2/2 Q2D variations in nutritional intake with prolonged QTc presenting on non-ECT mornings after patient received full overnight TF cycle. Acquired QTc prolongation to be expected with electrolyte abnormalities arising from starvation, less clear whether Q2D intermittent fasting with truncated TF can lead to similar effects with underlying elevated risk with amiodarone therapy (although low suspicion for hypo-K/-Mg/-Ca given appropriate levels on AM labs 06/09--adjusting serum Ca for low albumin--drawn prior to 06/09 EKG). QTc only mildly elevated to 492-515 on 06/10 AM s/p termination of TFs but again significantly elevated to 655 on 06/11 AM after ECT day prior. No indication of electrolyte disturbance contributing to QTc prolongation per 06/11 RFP+Mg s/p ECT 06/10 on PO intake only. QTc stable with only mild elevation over weekend, demonstrating that significantly prolonged QTc does occur only on mornings after ECT. Unremarkable electrolytes on RFP+Mg 06/13 verify r/o of electrolyte abnormalities w/ PO intake only as contributing to arrhythmia risk. - Continue Apixaban 5mg twice daily, metoprolol XL 25mg qD, amiodarone 100mg daily. - Continue Atorvastatin 40mg qD for CAD Assessment & Plan (06/04/2019 8:11 AM SPONGE FISHERMAN): No repeated falls and QTc has been in decent range over past couple of days (457 -> 471 -> 439). -apixaban 5mg twice daily, Metoprolol XL 25mg qD, Amiodarone 100mg daily. -Can go back to Metoprolol tartrate (BID) if heart rate starts to increase. -Atorvastatin 40mg qD for CAD Assessment & Plan (06/03/2019 9:03 AM SPONGE FISHERMAN): No repeated falls and QTc has been improving over past few days (508 -> 508 -> 457) - likely just chance as amiodarone has very long half-life and would not expect drastic improvement this soon after decreasing dose. -apixaban 5mg twice daily, Metoprolol XL 25mg qD, Amiodarone 100mg daily. -Can go back to Metoprolol tartrate (BID) if heart rate starts to increase. -Atorvastatin 40mg qD for CAD Assessment & Plan (2019 10:36 AM SPONGE FISHERMAN): No repeated falls and QTc has been improving over past few days (523 -> 508 -> 508) - likely just chance as amiodarone has very long half-life and would not expect drastic improvement this soon after decreasing dose. -apixaban 5mg twice daily, Metoprolol XL 25mg qD, Amiodarone 100mg daily. -Can go back to Metoprolol tartrate (BID) if heart rate starts to increase. -Atorvastatin 40mg qD for CAD Assessment & Plan (06/01/2019 10:16 AM SPONGE FISHERMAN): No repeated falls and QTc has been improving over past few days (561 -> 523 -> 508) - likely just chance as amiodarone has very long half-life and would not expect drastic improvement this soon after decreasing dose. -apixaban 5mg twice daily, Metoprolol XL 25mg qD, Amiodarone 100mg daily. -Can go back to Metoprolol tartrate (BID) if heart rate starts to increase. -Atorvastatin 40mg qD for CAD Assessment & Plan (05/31/2019 1:19 PM SPONGE FISHERMAN): Long-standing history of Paroxysmal Afib that requires cardioversion when it occurs. Well-controlled on Amiodarone 200mg qD, Eliquis 5mg BID, and Metoprolol 12.5mg BID (switched to XL 25mg qD to reduce pill burden). QTc interview has been significantly prolonged during admission (recent values 545, 561, 523). Cardiology consulted and determined that QTc is likely somewhat falsely elevated, due to bradycardia (although still somewhat prolonged). Also noted that patient should be kept on amiodarone, as when she does have Afib, it is relatively severe requiring cardioversion. Recommended dose of amiodarone could be cut in half to 100mg qD. Also recommended adding Atorvastatin 40mg qD for CAD and keeping metoprolol. -apixaban 5mg twice daily, Metoprolol XL 25mg qD, Amiodarone 100mg daily. -Can go back to Metoprolol tartrate (BID) if heart rate starts to increase. -Atorvastatin 40mg qD for CAD Assessment & Plan (05/30/2019 10:50 AM SPONGE FISHERMAN): Long-standing history of Paroxysmal Afib. Seemingly well-controlled on Amiodarone 200mg qD, Eliquis 5mg BID, and Metoprolol 12.5mg BID (switched to XL 25mg qD to reduce pill burden). QTc interview has been significantly prolonged during admission (recent values 516, 545, 561), and patient had recent fall (concern for cardiogenic in nature). Would likely benefit from replacing amiodarone. -apixaban 5mg twice daily, Metoprolol XL 25mg qD, Amiodarone 200mg daily. -Can go back to Metoprolol tartrate (BID) if heart rate starts to increase. -Consult cardiology for management, will appreciate their recommendations Assessment & Plan (05/28/2019 10:07 AM SPONGE FISHERMAN): -apixaban 5mg twice daily, Metoprolol XL 25mg qD (rather than BID to reduce pill burden), Amiodarone 200mg daily. -Can go back to Metoprolol tartrate (BID) if heart rate starts to increase. Assessment & Plan (05/27/2019 2:41 PM SPONGE FISHERMAN): -apixaban 5mg twice daily, Metoprolol XL 25mg qD (rather than BID to reduce pill burden), Amiodarone 200mg daily. -Can go back to Metoprolol tartrate (BID) if heart rate starts to increase. Assessment & Plan (05/26/2019 4:13 PM SPONGE FISHERMAN): -apixaban 5mg twice daily, Metoprolol XL 25mg qD (rather than BID to reduce pill burden), Amiodarone 200mg daily Assessment & Plan (05/25/2019 4:58 PM SPONGE FISHERMAN): -apixaban 5mg twice daily, Metoprolol 12.5mg twice daily, Amiodarone 200mg daily Resolved Problems Problem Noted Date Diagnosed Date Resolved Date UTI (urinary tract infection) 06/03/2019 06/09/2019 Overview (06/09/2019): [RESOLVED] Endorsed UTI symptoms of frequency/urgency during admission. UA showed 3+ leuk esterase, >50 WBCs, and 4+ Ca oxalate crystals. Urine culture <100,000 CFUs (clinically insignificant). Likely infection secondary to poor fluid intake. Completed 5-day course of nitrofurantoin 100 mg BID (liquid formulation via tube feeds) ON 06/07 with resolution of symptoms by 06/08 Assessment & Plan (06/10/2019 3:41 PM SPONGE FISHERMAN): Endorsed UTI symptoms of frequency/urgency during admission. UA showed 3+ leuk esterase, >50 WBCs, and 4+ Ca oxalate crystals. Urine culture <100,000 CFUs (clinically insignificant). Likely infection secondary to poor fluid intake. -Nitrofurantion 100mg BID (liquid formulation via tube feeds) for 5 day course -Encourage PO fluids. -IV fluids if needed Assessment & Plan (06/04/2019 8:12 AM SPONGE FISHERMAN): Endorsed UTI symptoms of frequency/urgency during admission. UA showed 3+ leuk esterase, >50 WBCs, and 4+ Ca oxalate crystals. Urine culture <100,000 CFUs (clinically insignificant). Likely infection secondary to poor fluid intake. -Nitrofurantion 100mg BID (liquid formulation via tube feeds) for 5 day course -Encourage PO fluids. -IV fluids if needed Assessment & Plan (06/03/2019 9:05 AM SPONGE FISHERMAN): Endorsed UTI symptoms of frequency/urgency during admission. UA showed 3+ leuk esterase, >50 WBCs, and 4+ Ca oxalate crystals. Likely infection secondary to poor fluid intake. -Nitrofurantion 100mg BID (liquid formulation via tube feeds) for 5 day course -Encourage PO fluids. -IV fluids if needed Morbid (severe) obesity due to excess calories 12/29/2018 06/30/2019 Overview (12/29/2018): Added automatically from request for surgery [id number] Status post bariatric surgery 04/05/2018 06/03/2019 Assessment & Plan (06/03/2019 9:03 AM SPONGE FISHERMAN): See A/P in Severe Malnutrition Assessment & Plan (2019 10:37 AM SPONGE FISHERMAN): See A/P in Severe Malnutrition Assessment & Plan (06/01/2019 10:16 AM SPONGE FISHERMAN): See A/P in Severe Malnutrition Assessment & Plan (05/31/2019 1:19 PM SPONGE FISHERMAN): See A/P in Severe Malnutrition Assessment & Plan (05/30/2019 10:50 AM SPONGE FISHERMAN): See A/P in Severe Malnutrition Assessment & Plan (05/28/2019 10:07 AM SPONGE FISHERMAN): See A/P in Severe Malnutrition Assessment & Plan (05/27/2019 2:41 PM SPONGE FISHERMAN): See A/P in Severe Malnutrition Assessment & Plan (05/26/2019 4:13 PM SPONGE FISHERMAN): See A/P in Severe Malnutrition Assessment & Plan (05/25/2019 4:57 PM SPONGE FISHERMAN): See A/P in Severe Malnutrition History of laparoscopic adju stable gastric banding 04/04/2016 05/25/2019 Overview (08/01/2016): History of laparoscopic adjustable gastric banding Immunizations Immunization Administration Dates Next Due PPD TEST 05/03/2021 Surgical History Surgery Date Site/Laterality Comments LAPAROSCOPIC GASTRIC BANDING LAPAROSCOPIC GASTRIC BYPASS 12/26/2018 - 01/24/2019 ESOPHAGOGASTRODUODENOSCOPY CARDIOVERSION 12/04/2020, 07/20/2020 & 03/12/2020 CARDIAC ELECTROPHYSIOLOGY MA PPING AND ABLATION 10/22/2020 Medical History Medical History Date Comments Hx Other Medical atrial flutter, HTN, h/o depression, s/p lap band.; Comments: MAF 04/04/2016 - Atrial fibrillation (HCC) Hypertension Depression Nausea Food intolerance History of laparoscopic adju stable gastric banding 04/04/2016 History of laparoscopic adju stable gastric banding CAD (coronary artery disease) Family History Medical History Relation Name Comments Emphysema Father Emphysema; Caus e of : Emphysema Emphysema Mother Emphysema; LM 1 06/05/2015 -unknown Relation Name Status Comments Father (Age 58) Mother Social History Tobacco Use Types Packs/Day Years Used Date Smoking Tobacco: Never Smokeless Tobacco: Never Tobacco Cessation:Counseling Given: Not Answered Alcohol Use Standard Drinks/Week Comments No 0 (1 standard drink = 0.6 oz pur e alcohol) Social Connection and Isolation Panel Answer Date Recorded Frequency of Communication with Friends and Fami ly Never 05/25/2019 Frequency of Social Gatherings with Friends and Family Never 05/25/2019 Attends Caodaism Services Never 05/25 Active Member of Clubs [...] staff should administer the PHQ-9) 2 10/22/2020 Personal Safety Answer Date Recorded Getting School Help Needed Not on file 04/27 Comments No Sex and Gender Information Value Date Recorded Sex Assigned at Not on file Legal Sex Female 2:16 AM SPONGE FISHERMAN Gender Identity Not on file Sexual Orientation Not on file Obstetrics History Comments Post menopause Last Filed Vital Signs Vital Sign Reading Time Taken Comments Blood Pressure 110/72 04/14/2022 8:28 AM SPONGE FISHERMAN Pulse 93 04/14/2022 8:28 AM SPONGE FISHERMAN Temperature 36.2 C (97.1 F) 11/04/2021 3:48 PM CDT Respiratory Rate 15 03/18/2021 10:15 AM SPONGE FISHERMAN Oxygen Saturation 96% 04/14/2022 8:28 AM SPONGE FISHERMAN Inhaled Oxygen Concentration - - Weight 77.1 kg (170 lb) 04/14/2022 8:28 AM SPONGE FISHERMAN Height 162.6 cm (5' 4) 04/14/2022 8:28 AM SPONGE FISHERMAN Body Mass Index 29.18 04/14/2022 8:28 AM SPONGE FISHERMAN Plan of Treatment Health Maintenance Due Date Last Done Comments Breast Cancer Screening-Mammogram 1955 Colon Cancer Screening-Colonoscopy 1955 Hepatitis C Screening 1955 Osteoporosis Screening-Bone Density Scan 1955 DTaP/Tdap/Td Vaccine (1 - Tdap) 1964 Hepatitis B Screening 1971 Pneumococcal vaccine 65+ (1 of 1 - PCV) 2003 Zoster Vaccine (1 of 2) 2003 Well Visit 65+ 2018 Depression Screening 09/21/2021 09/21/2020, 09/21/2020, 07/14/2019, Additional history exists Fall Risk Assessment 03/18/2022 03/18/2021, 01/24/2021, 11/10/2018 Covid-19 Vaccine (2 - 2024-2 6 season) 2024 04/30/2021 Influenza Vaccine (#1) 2024 Medical Devices Implanted Type Area Coater Helper Device Identifier Shelf Expiration Date Model / Serial / Lot [employer] [id number] System 6-12fr Mvp Venous Closure Vascade - [id number] Implanted:Qty: 1 on 10/22/2020 by Rey Bain MD at [facility] [employer] 07/17/2022 800-612C-1 0U / / [employer] [id number] System 6-12fr Mvp Venous Closure Vascade - [id number] Implanted:Qty: 1 on 10/22/2020 by Rey Bain MD at [facility] [employer] 07/17/2022 800-612C-1 0U / / [id number] [employer] [id number] System 6-12fr Mvp Venous Closure Vascade - [id number] Implanted:Qty: 1 on 10/22/2020 by Rey Bain MD at [facility] [employer] 07/17/2022 800-612C-1 0U / / [id number] [employer] [id number] System 6-12fr Mvp Venous Closure Vascade - [id number] Implanted:Qty: 1 on 02/11/2021 by Rey Bain MD at [facility] [employer] 10/17/2022 800-612C-1 0U / / [id number] [employer] [id number] System 6-12fr Mvp Venous Closure Vascade - [id number] Implanted:Qty: 1 on 02/11/2021 by Rey Bain MD at [facility] [employer] 10/17/2022 800-612C-1 0U / / [id number] [employer] [id number] System 6-12fr Mvp Venous Closure Vascade - [id number] Implanted:Qty: 1 on 02/11/2021 by Rey Bain MD at [facility] [employer] 10/17/2022 800-612C-1 0U / / [id number] [employer] Sandra 4014 8.5fr 250cm Tube Temporary Rapid Exchange Nasal Stent Biliary - [id number] Implanted:Qty: 1 on 05/19/2019 by Dylan Hammonds MD at [facility] [employer] Sandra 03/08/2022 [id number] / / [id number] Explanted Type Area Coater Helper Device Identifier Shelf Expiration Date Model / Serial / Lot [employer] B-[id number] Lap-Band L50 Cm Access Port I Adjustable Connector Radiopaque Latex Free - [id number] Explanted:Qty: 1 on 01/17/2019 by Diego Hastings MD at [facility] N/A: Abdomen [employer] B-2220 / / [place] [address] [place] Advance Directives For more information, please contact: [phone] * Full Code (Latest Code Status on File) Date Activated Date Inactivated Comments 07/17/2020 4:48 PM 07/20/2020 7:18 PM * Full Code Date Activated Date Inactivated Comments 07/14/2019 10:20 AM 07/15/2019 4:05 PM * Full Code Date Activated Date Inactivated Comments 07/14/2019 5:59 AM 07/14/2019 7:01 AM * Full Code Date Activated Date Inactivated Comments 07/07/2019 6:12 AM 07/08/2019 4:54 AM * Full Code Date Activated Date Inactivated Comments 06/30/2019 5:41 AM 07/01/2019 4:50 AM Care Teams Magnetic Locater Relationship Specialty Start Date End Date Bisi Dumont MD [facility] - General 07/25/16
--- OUTSIDE RECORDS SUMMARY | 2025-01-24 09:01 | XMS_ITS | Encounter Summary ---
Author Organization [facility] Address [address] [facility] [address] [place] [address] Care Team Providers Care Readiness Paraprofessional Name Role Phone Bisi Dumont MD Primary Care Provider + Bisi Dumont MD Primary Care Provider + Imelda Carrasco RN Unavailable [phone] Encounter Details Date Type Department Care Team (Late st Contact Info) Description 07/14/2016 Orders Only [facility] ProviderJimmie MD [address] [place] [address] Social History Tobacco Use Types Packs/Day Years Used Date Smoking Tobacco: Never Alcohol Use Standard Drinks/Week Comments No 0 (1 standard drink = 0.6 oz pur e alcohol) Comments Unknown Sex and Gender Information Value Date Recorded Sex Assigned at Not on file 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 Historical Provider [facility] Final Result documented in this encounter Visit Diagnoses Not on filedocumented in this encounter Care Teams Readiness Paraprofessional Relationship Specialty Start Date End Date Bisi Dumont MD PCP - General 07/25/16 Bisi Dumont MD PCP - General 04/04/16 07/24/16 Imelda Carrasco, RN [address] [address] [facility] Outpatient Chip Crusher Operator 07/18/19 07/18/19 documented as of this encounter
--- OUTSIDE RECORDS SUMMARY | 2025-01-24 09:01 | XMS_ITS | Encounter Summary ---
Author Organization [facility] Healthcare Address [address] [place] [address] Care Team Providers Care Classroom Aide Name Role Phone Bisi Dumont MD Primary Care Provider + Encounter Details Date Type Department Care Team (Late st Contact Info) Description 06/28/2021 Telephone [facility] Transplant Heart [address] [facility] [address] [id number] [place] [address] Shania Eid Social History Tobacco Use Types Packs/Day Years Used Date Smoking Tobacco: Never Smokeless Tobacco: Never Alcohol Use Standard Drinks/Week Comments No 0 (1 standard drink = 0.6 oz pur e alcohol) Social Connection and Isolation Panel Answer Date Recorded Frequency of Communication with Friends and Fami ly Never 05/25/2019 Frequency of Social Gatherings with Friends and Family Never 05/25/2019 Attends [employer] Services Never 05/25 Active Member of Clubs [...] on file 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
--- OUTSIDE RECORDS SUMMARY | 2025-01-24 09:01 | XMS_ITS | Encounter Summary ---
Author Organization [facility] Address [address] [place] [address] Phone Care Team Providers Care Canine Enforcement Officer Name Role Phone Bisi Dumont MD Primary Care Provider + Encounter Details Date Type Department Care Team (Latest Contact Info) Description 03/19/2020 Orders Only [facility] Scanning, Provider [...] with Friends and Family Never 05/25/2019 Attends Jainism Services Never 05/25 Active Member of Clubs or Organizations No 05/25/2019 Attends Club or Organization Meetings Never 05/25/2019 Marital Status 05/25/2019 PHQ-2 Answer Date Recorded PHQ-2 Total Score (If total score is 3 or more points, staff should administer the PHQ-9) 4 07/14/2019 Comments No Sex and Gender Information Value Date Recorded Sex Assigned at Not on file 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 Gender Identity Not on file Sexual Orientation Not on file documented as of this encounter Plan of Treatment Not on file documented as of this encounter Procedures Procedure Name Priority Date/Time Associated Diagnosis Comments CARDIOLOGY DOCUMENT SCAN 03/19/2020 documented in this encounter Results * SCAN - CARDIOLOGY (03/19/2020) Anatomical Region Laterality Modality Other us Provider Scanning [facility] PROCED[facility] Final Result documented in this encounter Visit Diagnoses Not on filedocumented in this encounter Care Teams Canine Enforcement Officer Relationship Specialty Start Date End Date Bisi Dumont MD PCP - General 07/25/16 documented as of this encounter
--- OUTSIDE RECORDS SUMMARY | 2025-01-24 09:01 | XMS_ITS | Encounter Summary ---
Author Organization [facility] Address [address] [facility] [address] [place] [address] Care Team Providers Care Passenger Brakeman Name Role Phone Bisi Dumont MD Primary Care Provider + Bisi Dumont MD Primary Care Provider + Imelda Carrasco RN Unavailable [phone] Encounter Details Date Type Department Care Team (Late st Contact Info) Description 04/07/2016 Orders Only [facility] ProviderJimmie MD [address] [place] [address] Social History Tobacco Use Types Packs/Day Years Used Date Smoking Tobacco: Never Alcohol Use Standard Drinks/Week Comments No 0 (1 standard drink = 0.6 oz pur e alcohol) Comments Unknown Sex and Gender Information Value Date Recorded Sex Assigned at Not on file 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 Historical Provider [facility] Final Result documented in this encounter Visit Diagnoses Not on filedocumented in this encounter Care Teams Passenger Brakeman Relationship Specialty Start Date End Date Bisi Dumont MD PCP - General 07/25/16 Bisi Dumont MD PCP - General 04/04/16 07/24/16 Imelda Carrasco, RN [address] [address] [facility] Outpatient Mandarin Chinese Teacher 07/18/19 07/18/19 documented as of this encounter
--- OUTSIDE RECORDS SUMMARY | 2025-01-24 09:01 | XMS_ITS | Encounter Summary ---
Author Organization [facility] Address [address] [facility] [address] [place] [address] Care Team Providers Care Dashboard Developer Name Role Phone Bisi Dumont MD Primary Care Provider + Bisi Dumont MD Primary Care Provider + Imelda Carrasco RN Unavailable [phone] Encounter Details Date Type Department Care Team (Late st Contact Info) Description 06/17/2016 Orders Only [facility] ProviderJimmie MD [address] [place] [address] Social History Tobacco Use Types Packs/Day Years Used Date Smoking Tobacco: Never Alcohol Use Standard Drinks/Week Comments No 0 (1 standard drink = 0.6 oz pur e alcohol) Comments Unknown Sex and Gender Information Value Date Recorded Sex Assigned at Not on file 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 Historical Provider [facility] Final Result documented in this encounter Visit Diagnoses Not on filedocumented in this encounter Care Teams Dashboard Developer Relationship Specialty Start Date End Date Bisi Dumont MD PCP - General 07/25/16 Bisi Dumont MD PCP - General 04/04/16 07/24/16 Imelda Carrasco, RN [address] [address] [facility] Outpatient Lavatory Attendant 07/18/19 07/18/19 documented as of this encounter
[2025-01-24 13:23] LABS: Alanine Aminotransferase 14 U/L (6-35); Albumin Level 3.9 g/dL (3.5-5.1); Alkaline Phosphatase 156 U/L (38-126); Anion Gap 8 mmol/L (4-12); Aspartate Amino Transferase 39 U/L (14-36); Bilirubin,Total 0.5 mg/dL (0.2-1.3); Blood Urea Nitrogen 13 mg/dL (7-17); Calcium 8.7 mg/dL (8.4-10.2); Carbon Dioxide 25 mmol/L (22-30); Chloride 106 mmol/L (98-107); Cholesterol 177 mg/dL (0-200); Estimated Glomerular Filt Rate 44; Glucose 87 mg/dL (65-110); HDL Direct 54 mg/dL; Potassium 4.0 mmol/L (3.4-5.0); Sodium 139 mmol/L (137-145); Total Protein 7.2 g/dL (6.3-8.2); Triglycerides 83 mg/dL (<150)
[2025-01-24 13:46] LABS: Ferritin 7.00 ng/mL (11.1-264)
[2025-01-24 14:24] LABS: Vitamin B12 216.0 pg/mL (239-931)
== END 2025-01-24 08:46 | disposition home or self-care (01) ==
LOC: ANHGOSHLAB 08:46
PROVIDERS: PCP Family Medicine; Visit Provider Student in an Organized Health Care Education/Training Program
DX: I10 Essential (primary) hypertension (principal); E61.1 Iron deficiency; E53.8 Deficiency of other specified B group vitamins
CPT/HCPCS: 36415; 80053; 80061; 82607; 82728